=== PATIENT | female | born 1975 | race Caucasian/White ===

== ENCOUNTER → 2017-08-29 | Outpatient (CLI) | payer OTHER ==
--- NOTE | 2017-08-29 13:11 | MM ---
Reason for exam: additional evaluation requested from prior study. Last mammogram was performed 1 year and 6 months ago. History: Family history of breast cancer in mother at age 32 and breast cancer in grandmother. Took hormonal contraceptives for 6 years. Physical Findings: Nurse did not find any significant physical abnormalities on exam. MG 3D Diag Mammo W/Cad EH Bilateral CC and MLO view(s) were taken. Prior study comparison: February 24, 2016, left breast MG follow up LT no charge. February 10, 2016, bilateral MG diagnostic mammo w CAD EH. Scattered benign round calcifications. 6mm nodular asymmetry far posterior superior left breast likely a axillary tail lymph node but was not seen previously. These results were verbally communicated with the patient and result sheet given to the patient on 08/29/17. ASSESSMENT: Incomplete: need additional imaging evaluation, BI-RAD 0 RECOMMENDATION: Ultrasound of the left breast. (upper outer quadrant/axilla)
--- NOTE | 2017-08-29 13:12 | USB ---
Reason for exam: additional evaluation requested from abnormal screening. History: Family history of breast cancer in mother at age 32 and breast cancer in grandmother. Took hormonal contraceptives for 6 years. US Breast Limited LT Left breast ultrasound demonstrates no cystic or solid lesion seen. These results were verbally communicated with the patient and result sheet given to the patient on 08/29/17. ASSESSMENT: Probably benign, BI-RAD 3 RECOMMENDATION: Follow-up diagnostic mammogram of the left breast in 6 months.
== END | disposition home or self-care (01) ==
LOC: RADMAMWWP 10:48
PROVIDERS: ATTEND Family Medicine
DX: R92.8 Other abnormal and inconclusive findings on diagnostic imaging of breast (principal)
CPT/HCPCS: 76642; G0204; G0279

== ENCOUNTER → 2018-03-24 | Outpatient (CLI) | payer BC, OTHER ==
--- NOTE | 2018-03-27 08:39 | MM ---
Reason for exam: follow-up at short interval from prior study. Last mammogram was performed 7 months ago. History: Family history of breast cancer in mother at age 32 and breast cancer in grandmother. Took hormonal contraceptives for 6 years. Physical Findings: Nurse did not find any significant physical abnormalities on exam. MG 3D Diag Mammo W/Cad LT CC and MLO view(s) were taken of the left breast. Prior study comparison: August 29, 2017, bilateral MG 3d diag mammo w/cad EH. February 24, 2016, left breast MG follow up LT no charge. There are scattered fibroglandular densities. Benign calcifications in the left breast. The previously seen suspicious asymmetry overlying the pectoralis related to a folding vessel and is no longer present. These results were verbally communicated with the patient and result sheet given to the patient on 03/24/18. ASSESSMENT: Benign, BI-RAD 2 RECOMMENDATION: Routine screening mammogram of both breasts in 6 months. Back on schedule for August 2018.
== END | disposition home or self-care (01) ==
LOC: RADMAMWWP 14:28
PROVIDERS: ATTEND Family Medicine
DX: R92.8 Other abnormal and inconclusive findings on diagnostic imaging of breast (principal)
CPT/HCPCS: 77061; 77065

== ENCOUNTER → 2018-12-04 | Outpatient (CLI) | payer BC ==
[2018-12-04 18:39] LABS: Anion Gap 7.5 mmol/L (4.00-12.00); Carbon Dioxide 24.5 mmol/L (21.6-31.8); LDL Cholesterol,Calculated 33.8 mg/dL (0.0-131.0); Potassium 4.4 mmol/L (3.5-5.5); VLDL Calculation 53.2 mg/dL (5.00-40.00)
[2018-12-04 20:47] LABS: Hemoglobin A1C 7.3 % (4.0-6.0)
== END ==
LOC: LABWHC1 07:57
PROVIDERS: ATTEND Family Medicine
DX: E11.9 Type 2 diabetes mellitus without complications (principal); Z79.899 Other long term (current) drug therapy
CPT/HCPCS: 36415; 80051; 80061; 82043; 82565; 82570; 83036; 84520

== ENCOUNTER → 2019-06-12 | Outpatient (CLI) | payer BC ==
[2019-06-12 16:51] LABS: African American GFR (CKD) 124.7 (60.0-200.0); Carbon Dioxide 23.8 mmol/L (21.6-31.8); Chloride 106 mmol/L (96-109); Chol/HDL Ratio 4.43; Cholesterol 133 mg/dL (0-200); Potassium 3.9 mmol/L (3.5-5.5); Sodium 139 mmol/L (135-145)
[2019-06-12 19:01] LABS: Hemoglobin A1C 6.9 % (4.0-6.0)
== END | disposition home or self-care (01) ==
LOC: LABWHC1 08:21
PROVIDERS: ATTEND Family Medicine
DX: E78.00 Pure hypercholesterolemia, unspecified (principal); E11.9 Type 2 diabetes mellitus without complications
CPT/HCPCS: 36415; 80051; 80061; 82043; 82565; 82570; 83036; 83721; 84520

== ENCOUNTER → 2019-07-02 | Outpatient (CLI) | payer BC ==
--- NOTE | 2019-07-02 14:42 | MM ---
Reason for exam: screening (asymptomatic). Last mammogram was performed 1 year and 3 months ago. History: Family history of breast cancer in mother at age 32 and breast cancer in grandmother. Took hormonal contraceptives for 6 years. Physical Findings: A clinical breast exam by your physician is recommended on an annual basis and results should be correlated with mammographic findings. MG Screening Mammo w CAD Bilateral CC and MLO view(s) were taken. Prior study comparison: March 24, 2018, left breast MG 3d diag mammo w/cad LT. August 29, 2017, bilateral MG 3d diag mammo w/cad EH. February 10, 2016, bilateral MG diagnostic mammo w CAD EH. Finding: There is a 6 mm equal density (isodense), circumscribed lobulated mass located 8 cm from the nipple in the upper outer quadrant, middle position of the left breast. New finding since March 24, 2018, August 29, 2017, and February 10, 2016. ASSESSMENT: Incomplete: need additional imaging evaluation, BI-RAD 0 RECOMMENDATION: Special view mammogram of the left breast. If lesion persists on supplemental views, image directed ultrasound is recommended. [facility] will attempt to contact patient to return for supplemental views and ultrasound if indicated.
== END | disposition home or self-care (01) ==
LOC: LABWHC1 07:42
PROVIDERS: ATTEND Family Medicine
DX: Z12.31 Encounter for screening mammogram for malignant neoplasm of breast (principal)
CPT/HCPCS: 77067

== ENCOUNTER → 2019-07-12 | Outpatient (CLI) | payer BC ==
--- NOTE | 2019-07-12 11:37 | MM ---
Reason for exam: additional evaluation requested from abnormal screening. Last mammogram was performed less than 1 month ago. History: Family history of breast cancer in mother at age 32 and breast cancer in grandmother. Took hormonal contraceptives for 6 years. Physical Findings: Nurse did not find any significant physical abnormalities on exam. MG Work Up Mamm w CAD LT Spot compression CC, spot compression MLO, and ML view(s) were taken of the left breast. Prior study comparison: July 02, 2019, bilateral MG screening mammo w CAD. March 24, 2018, left breast MG 3d diag mammo w/cad LT. The breast tissue is heterogeneously dense. This may lower the sensitivity of mammography. Benign appearing calcifications in the left breast. 4mm asymmetries persist on spot MLO at middle depth 7cm from nipple. One is central and the other superior. Probable correlate laterally. These results were verbally communicated with the patient and result sheet given to the patient on 07/12/19. ASSESSMENT: Incomplete: need additional imaging evaluation, BI-RAD 0 RECOMMENDATION: Ultrasound of the left breast. (lateral half)
--- NOTE | 2019-07-12 11:40 | USB ---
Reason for exam: additional evaluation requested from abnormal screening. History: Family history of breast cancer in mother at age 32 and breast cancer in grandmother. Took hormonal contraceptives for 6 years. US Breast Workup Limited LT Left limited breast ultrasound including focal area of concern, retroareolar and axilla demonstrates a 0.7 x 0.7 x 0.9cm irregular, lobular, shadowing, irregular, hypoechoic lesion at 3 o'clock for which a biopsy is recommended, a 0.3 x 0.4 x 0.2cm oval, cystic lesion at 3 o'clock probable small cysts and probable mammographic correlate, a 0.3 x 0.5 x 0.3cm oval, irregular, hypoechoic lesion at 3 o'clock probable small cysts and probable mammographic correlate and multiple axilla nodes. These results were verbally communicated with the patient and result sheet given to the patient on 07/12/19. ASSESSMENT: Suspicious, BI-RAD 4 RECOMMENDATION: Ultrasound core biopsy of the left breast. (3 o'clock zone A) Called Dr. Araiza with mammographic findings and has scheduled an appointment for the patient for 07/20/19 at 1:[address] Gallo. Biopsy scheduled for 07/25/19 at 2:00. PRELIMINARY REPORT CALLED AND FAXED TO DR. GALLO ON 07/12/19.
== END | disposition home or self-care (01) ==
LOC: RADMAMWWP 08:46
PROVIDERS: ATTEND Family Medicine
DX: R92.8 Other abnormal and inconclusive findings on diagnostic imaging of breast (principal)
CPT/HCPCS: 77065

== ENCOUNTER → 2019-07-20 | Outpatient (CLI) | payer BC ==
[2019-07-20 13:43] VITALS: BP 126/85; PULSE 83; RESP 16; TEMP 98.4; BMI 33.6
--- NOTE | 2019-07-20 13:59 | P.GSHP ---
History of Present Illness H&P Date: 07/20/19 Chief Complaint: abnormal mammogram Comfort is a 43-year-old white female who had a routine mammogram performed on 920 [id number]. There was noted to be a 6 mm equal density circumscribed lobulated mass 8 cm from the nipple in the upper outer quadrant mid position of the left breast. No lesions of concern were described in the right breast. An ultrasound of the left breast revealed a 0.7 x 0.9 cm irregular shadowing lesion for which biopsy was recommended. Several smaller cystic lesions were identified as well. The patient does not feel anything of concern in her breast. The patient has no history of any infection in her breast. No history of any trauma in her breasts. No prior breast biopsies. The patient is not complaining of any pain in her breasts. The ultrasounds were reviewed with Dr. Sanches. Depending on the results after ultrasound-guided core biopsy if this is negative she will consider discordant and recommended needle local excisional biopsy. The patient had genetic testing done and is negative for the BRCA1 gene. This was secondary to her mother dying of breast cancer at the age of 40. Family History: mother: of breast cancer at 40, DX. at 32 paternal grandmother: breast cancer Hormonal history: Menarche:14 , breast fed: yes, age at first: 26 Hysterectomy at 40, left ovaries, done for endometriosis BCP: 2 years did not take anything with estrogen hormones:none Past Surgical History: 1. hysterectomy 2. cervical biopsy 3. novasure 4. teeth wisdom Medical History: 1. diabetic 2. HTN 3. depression Social History: smoke: none alcohol: noen drugs: none - Constitutional Constitutional: Denies chills, Denies fever - EENT Eyes: denies blurred vision, denies pain Ears: bilateral: tinnitus, deny: decreased hearing Ears, nose, mouth and throat: Denies headache, Denies sore throat - Breasts Breasts: bilateral: as per HPI - Cardiovascular Cardiovascular: Reports high blood pressure - Respiratory Respiratory: Denies cough, Denies 7 - Gastrointestinal Gastrointestinal: Denies abdominal pain, Denies diarrhea, Denies nausea, Denies vomiting - Genitourinary (Female) Genitourinary: Denies dysuria, Denies hematuria - Menstruation Menstruation: Reports post hysterectomy - Musculoskeletal Musculoskeletal: Reports myalgias - Integumentary Integumentary: Denies pruritus, Denies rash - Neurological Neurological: Denies numbness, Denies weakness - Psychiatric Psychiatric: Reports anxiety, Reports depression - Endocrine Comment: diabetes - Hematologic/Lymphatic Comment: none - Allergic/Immunologic Allergic/Immunologic: Reports as per HPI Past Medical History Past Medical History: Diabetes Mellitus, Hypertension Additional Past Medical History / Comment(s): depression History of Any Multi-Drug Resistant Organisms: None Reported Past Surgical History: Section, Hysterectomy Additional Past Surgical History / Comment(s): Nova sure, cervical biopsy benign Past Anesthesia/Blood Transfusion Reactions: No Reported Reaction Past Psychological History: Anxiety, Depression Smoking Status: Never smoker Past Alcohol Use History: None Reported Past Drug Use History: None Reported Medications and Allergies Home Medications Medication Instructions Recorded Confirmed Type Ibuprofen [Motrin] 800 mg PO Q8HR PRN #20 tab 09/08/16 07/20/19 Rx Insulin Glargine [Lantus] 80 unit SQ HS 09/08/16 07/20/19 History Lisinopril [Prinivil] 20 mg PO DAILY 09/08/16 07/20/19 History Simvastatin [Zocor] 20 mg PO HS 09/08/16 07/20/19 History metFORMIN HCL 1,000 mg PO BID 09/08/16 07/20/19 History Allergies Allergy/AdvReac Type Severity Reaction Status Date / Time Penicillins Allergy Unknown Verified 07/20/19 13:31 Childhood Surgical - Exam Vital Signs Temp Pulse Resp BP Pulse Ox 98.4 F 83 16 126/85 99 07/20/19 13:37 07/20/19 13:37 07/20/19 13:37 07/20/19 13:37 07/20/19 13:37 BMI 33.7 - General well developed, well nourished, no distress - Eyes normal ocular movement - ENT no hearing loss, no congestion - Neck no masses, trachea midline - Respiratory normal respiratory effort, clear to auscultation - Cardiovascular Rhythm: regular Heart Sounds: normal: S1, S2 - Abdomen Abdomen: soft, non tender, no guarding, no rigid, no rebound - Integumentary normal turgor - Neurologic no disoriented, no combative - Musculoskeletal normal gait - Psychiatric oriented to time, oriented to person, oriented to place, speech is normal, memory intact breast exam: Right breast: Multi-positional exam fibrocystic breast changes no discrete dominant masses or nodules of concern Right axilla: No adenopathy of concern Left breast: Multi-positional exam fibrocystic changes no discrete dominant masses or nodules of concern, special attention was paid to the 3:00 area and no definite mass could be identified Left axilla: No adenopathy of concern Results Mammogram and ultrasound results reviewed Assessment and Plan Assessment: Impression: 1. Fibrocystic breast changes 2. Abnormal mammogram 2. Abnormal ultrasound left breast 4. Family history of breast cancer 5. Hypertension 6. Diabetes 7. Anxiety/depression Plan: 1. Ultrasound-guided core biopsy of left breast lesion at the 3:00 zone a position 2. If pathology is not positive. Consider this discordant and needle local excisional biopsy after review with Dr. Sanches 3. Medical management of medical conditions 4. Patient has had genetic testing for BRCA1 gene we'll consider additional genetic testing secondary to family history CC: Miguel A Araiza
== END | disposition home or self-care (01) ==
LOC: WWCWWP 13:16
PROVIDERS: ATTEND Surgery
DX: Z53.9 Procedure and treatment not carried out, unspecified reason (principal)

== ENCOUNTER → 2019-07-25 | Day surgery (SDC) | payer BC ==
[2019-07-25 13:26] VITALS: PULSE 76; RESP 16; TEMP 98.1; BMI 33.5
[2019-07-25 15:20] VITALS: BP 122/78
--- NOTE | 2019-07-25 15:58 | USB ---
EXAMINATION TYPE: US biopsy breast VAD LT DATE OF EXAM: 07/25/2019 CLINICAL HISTORY: R92..8 Abnormal Mammogram. TECHNIQUE: Ultrasound guided core biopsy of left breast. COMPARISON: 07/12/2019 FINDINGS: The procedure of ultrasound guided core biopsy was explained to the patient. Benefits, alternatives, and risks were discussed. An informed consent was then obtained. A timeout was performed The patient was placed in supine positioning for imaging and for the procedure. The overlying skin was prepped and draped in usual sterile fashion. Lidocaine buffered was used as anesthetic into the skin and subcutaneous tissue up to area of concern in the left breast. A jack was made with surgical scalpel. Under ultrasound guidance, a 12-gauge vacuum assisted biopsy gun device was used to obtain 4 core samples. Following this, a biopsy clip was left in lesion. The patient tolerated the procedure well without any immediate complication. The patient was kept in the radiology department for short stay after the procedure and then discharged home in stable condition. Postprocedure mammogram was performed. Clip is identified in the expected region of the biopsy. IMPRESSION: 1. Successful ultrasound-guided vacuum-assisted core biopsy left breast. Recommendations: 1. Recommendations are pending pathology results. Pathology Results: Benign LEFT BREAST, ULTRASOUND GUIDED CORE BIOPSY: Fibrocystic changes including fibrosis, small cysts and mild usual type ductal hyperplasia. Recommendation Follow up mammogram of the left breast in 6 months. DONNA
== END ==
LOC: RADUSWWP 12:43
PROVIDERS: ATTEND Surgery
DX: N60.12 Diffuse cystic mastopathy of left breast (principal); Z88.0 Allergy status to penicillin
CPT/HCPCS: 88305; 77065; 19083; A4648; J2001

== ENCOUNTER → 2019-08-10 | Outpatient (CLI) | payer BC ==
[2019-08-10 08:48] VITALS: BP 119/76; PULSE 90; RESP 18; TEMP 98.2; BMI 33.5
--- NOTE | 2019-08-10 09:15 | P.PN ---
Subjective Progress Note Date: 08/10/19 Principal diagnosis: Discordant ultrasound core biopsy Comfort is a 43-year-old white female who had a routine mammogram performed on 920 [id number]. There was noted to be a 6 mm equal density circumscribed lobulated mass 8 cm from the nipple in the upper outer quadrant mid position of the left breast. No lesions of concern were described in the right breast. An ultrasound of the left breast revealed a 0.7 x 0.9 cm irregular shadowing lesion for which biopsy was recommended. Several smaller cystic lesions were identified as well. The patient does not feel anything of concern in her breast. The patient has no history of any infection in her breast. No history of any trauma in her breasts. No prior breast biopsies. The patient is not complaining of any pain in her breasts. The ultrasounds were reviewed with Dr. Sanches. Depending on the results after ultrasound-guided core biopsy if this is negative she will consider discordant and recommended needle local excisional biopsy. The patient underwent an ultrasound core biopsy on [id number]. Pathology was discordant revealing only fibrocystic changes including fibrosis, small cyst, and usual tight ductal hyperplasia. Prior to the core biopsy had been reviewed with the radiologist and discussed with the patient that if this was benign the needle local excisional biopsy would be recommended. It would be considered discordant if this was benign or at minimum not benign specific. Of significance is the fact that the patient's mother of breast cancer in her 40s. Her mother had been told multiple times that she had fibrocystic breast and the tumor was not identified and tolerated it was quite advanced. The patient has had genetic testing done many years ago and we have discussed that there is more extensive testing which is available at this time. She has been given all information regarding this and will call the genetic counselor at her convenience. The patient states that she had marked fatigue following the procedure. She has some mild bruising immediately following the procedure. She does not have any complaints of bruising or swelling at the site of the biopsy at this time. She does not have any fever or chills and no evidence of any infection. The patient had genetic testing done and is negative for the BRCA1 gene. This was secondary to her mother dying of breast cancer at the age of 40. Family History: mother: of breast cancer at 40, DX. at 32 paternal grandmother: breast cancer Hormonal history: Menarche:14 , breast fed: yes, age at first: 26 Hysterectomy at 40, left ovaries, done for endometriosis BCP: 2 years did not take anything with estrogen hormones:none Past Surgical History: 1. hysterectomy 2. cervical biopsy 3. novasure 4. teeth wisdom Medical History: 1. diabetic 2. HTN 3. depression Social History: smoke: none alcohol: noen drugs: none - Constitutional Constitutional: Denies chills, Denies fever - EENT Eyes: denies blurred vision, denies pain Ears: bilateral: tinnitus, deny: decreased hearing Ears, nose, mouth and throat: Denies headache, Denies sore throat - Breasts Breasts: bilateral: as per HPI - Cardiovascular Cardiovascular: Reports high blood pressure - Respiratory Respiratory: Denies cough, Denies 7 - Gastrointestinal Gastrointestinal: Denies abdominal pain, Denies diarrhea, Denies nausea, Denies vomiting - Genitourinary (Female) Genitourinary: Denies dysuria, Denies hematuria - Menstruation Menstruation: Reports post hysterectomy - Musculoskeletal Musculoskeletal: Reports myalgias - Integumentary Integumentary: Denies pruritus, Denies rash - Neurological Neurological: Denies numbness, Denies weakness - Psychiatric Psychiatric: Reports anxiety, Reports depression - Endocrine Comment: diabetes - Hematologic/Lymphatic Comment: none - Allergic/Immunologic Allergic/Immunologic: Reports as per HPI Past Medical History Past Medical History: Diabetes Mellitus, Hypertension Additional Past Medical History / Comment(s): depression History of Any Multi-Drug Resistant Organisms: None Reported Past Surgical History: Section, Hysterectomy Additional Past Surgical History / Comment(s): Nova sure, cervical biopsy benign Past Anesthesia/Blood Transfusion Reactions: No Reported Reaction Past Psychological History: Anxiety, Depression Smoking Status: Never smoker Past Alcohol Use History: None Reported Past Drug Use History: None Reported Medications and Allergies Home Medications Medication Instructions Recorded Confirmed Type Ibuprofen [Motrin] 800 mg PO Q8HR PRN #20 tab 09/08/16 07/20/19 Rx Insulin Glargine [Lantus] 80 unit SQ HS 09/08/16 07/20/19 History Lisinopril [Prinivil] 20 mg PO DAILY 09/08/16 07/20/19 History Simvastatin [Zocor] 20 mg PO HS 09/08/16 07/20/19 History metFORMIN HCL 1,000 mg PO BID 09/08/16 07/20/19 History Allergies Allergy/AdvReac Type Severity Reaction Status Date / Time Penicillins Allergy Unknown Verified 07/20/19 13:31 Childhood Objective - Vital Signs Vital signs: Vital Signs Temp 98.2 F 08/10/19 08:46 Pulse 90 08/10/19 08:46 Resp 18 08/10/19 08:46 BP 119/76 08/10/19 08:46 Pulse Ox 97 08/10/19 08:46 Intake & Output 08/09/19 08/10/19 08/10/19 18:59 06:59 18:59 Weight 102.965 kg - Exam BMI 33.5 - Constitutional General appearance: Present: obese - EENT Eyes: Present: EOMI ENT: Present: hearing grossly normal - Neck Neck: Present: normal ROM - Respiratory Respiratory: bilateral: CTA - Cardiovascular Rhythm: regular Heart sounds: normal: S1, S2 - Integumentary Integumentary Comment(s): left breast: No ecchymosis or evidence of infection at biopsy site No evidence of hematoma at biopsy site left breast Integumentary: Present: normal turgor - Musculoskeletal Musculoskeletal: Present: gait normal - Psychiatric Psychiatric: Present: A&O x's 3, appropriate affect, intact judgment & insight Assessment and Plan Assessment: Impression: 1. Discordant ultrasound core biopsy left breast 2. Abnormal left breast ultrasound 3. Family history of breast cancer/mother 4. Hypertension 5. Diabetes 6. Anxiety/depression Plan: 1. Ultrasound-guided core biopsy of left breast discordant, this will be scheduled for needle local excisional biopsy 2. Medical management of medical conditions prior to surgery 3. Patient BRCA1 negative however this was done many years ago and patient will have additional genetic testing done Cc: Dr. Miguel A Araiza CC: DR. Francine Mendez
== END ==
LOC: WWCWWP 08:13
PROVIDERS: ATTEND Surgery
DX: Z53.9 Procedure and treatment not carried out, unspecified reason (principal)

== ENCOUNTER → 2019-10-18 | Outpatient (CLI) | payer BC ==
[2019-10-18 15:35] VITALS: BP 133/87; PULSE 96; RESP 18; TEMP 98.4
--- NOTE | 2019-10-18 15:57 | P.PN ---
Subjective Progress Note Date: 10/18/19 Principal diagnosis: Discordant ultrasound core biopsy Comfort is a 43-year-old white female [place] [id number]. There was noted to be a 6 mm equal density circumscribed lobulated mass 8 cm from the nipple in the upper outer quadrant mid position of the left breast. No lesions of concern were described in the right breast. An ultrasound of the left breast revealed a 0.7 x 0.9 cm irregular shadowing lesion for which biopsy was recommended. Several smaller cystic lesions were identified as well. The patient does not feel anything of concern in her breast. The patient has no history of any infection in her breast. No history of any trauma in her breasts. No prior breast biopsies. The patient is not complaining of any pain in her breasts. The ultrasounds were reviewed with Dr. Sanches. Depending on the results after ultrasound-guided core biopsy if this is negative she will consider discordant and recommended needle local excisional biopsy. The patient underwent an ultrasound core biopsy on [id number]. Pathology was discordant revealing only fibrocystic changes including fibrosis, small cyst, and usual tight ductal hyperplasia. Prior to the core biopsy had been reviewed with the radiologist and discussed with the patient that if this was benign the needle local excisional biopsy would be recommended. It would be considered discordant if this was benign or at minimum not benign specific. Of significance is the fact that the patient's mother of breast cancer in her 40s. Her mother had been told multiple times that she had fibrocystic breast and the tumor was not identified and tolerated it was quite advanced. T he patient has had genetic testing done many years ago and we have discussed that there is more extensive testing which is available at this time. She has been given all information regarding this and will call the genetic counselor at her convenience. The patient states that she had marked fatigue following the procedure. This lasted for 5 days. She had some mild bruising immediately following the procedure. She does not have any complaints of bruising or swelling at the site of the biopsy at this time. She does not have any fever or chills and no evidence of any infection. The patient had genetic testing done and is negative for the BRCA1 gene. This was secondary to her mother dying of breast cancer at the age of 40. Case was reviewed with Dr. Jaimes.. There are 3 ultrasound abnormalities one of which is most suspicious. However on the day of the procedure all would be again evaluated and not only the one which was discordant but the other 2 with deemed necessary will be localized and removed as well. Family History: mother: of breast cancer at 40, DX. at 32 paternal grandmother: breast cancer Hormonal history: Menarche:14 , breast fed: yes, age at first: 26 Hysterectomy at 40, left ovaries, done for endometriosis BCP: 2 years did not take anything with estrogen hormones:none Past Surgical History: 1. hysterectomy 2. cervical biopsy 3. novasure 4. teeth wisdom Medical History: 1. diabetic 2. HTN 3. depression 4. Patient experiences fatigue after surgical procedures Social History: smoke: none alcohol: none drugs: none - Constitutional Constitutional: Denies chills, Denies fever - EENT Eyes: denies blurred vision, denies pain Ears: bilateral: tinnitus, deny: decreased hearing Ears, nose, mouth and throat: Denies headache, Denies sore throat - Breasts Breasts: bilateral: as per HPI - Cardiovascular Cardiovascular: Reports high blood pressure - Respiratory Respiratory: Denies cough, - Gastrointestinal Gastrointestinal: Denies abdominal pain, Denies diarrhea, Denies nausea, Denies vomiting - Genitourinary (Female) Genitourinary: Denies dysuria, Denies hematuria - Menstruation Menstruation: Reports post hysterectomy - Musculoskeletal Musculoskeletal: Reports myalgias - Integumentary Integumentary: Denies pruritus, Denies rash - Neurological Neurological: Denies numbness, Denies weakness - Psychiatric Psychiatric: Reports anxiety, Reports depression - Endocrine Comment: diabetes - Hematologic/Lymphatic Comment: none - Allergic/Immunologic Allergic/Immunologic: Reports as per HPI Past Medical History Past Medical History: Diabetes Mellitus, Hypertension Additional Past Medical History / Comment(s): depression History of Any Multi-Drug Resistant Organisms: None Reported Past Surgical History: Section, Hysterectomy Additional Past Surgical History / Comment(s): Nova sure, cervical biopsy benign Past Anesthesia/Blood Transfusion Reactions: No Reported Reaction Past Psychological History: Anxiety, Depression Smoking Status: Never smoker Past Alcohol Use History: None Reported Past Drug Use History: None Reported Objective - Vital Signs Vital signs: Vital Signs Temp 98.4 F 10/18/19 15:30 Pulse 96 10/18/19 15:30 Resp 18 10/18/19 15:30 BP 133/87 10/18/19 15:30 Pulse Ox 98 01/09/20 15:30 Intake & Output 10/17/19 10/18/19 10/18/19 18:59 06:59 18:59 Weight 106.141 kg - Exam BMI 34.6 - Constitutional General appearance: Present: obese - EENT Eyes: Present: EOMI ENT: Present: hearing grossly normal - Neck Details: no adenopathy Neck: Present: normal ROM - Respiratory Respiratory: bilateral: CTA - Cardiovascular Rhythm: regular Heart sounds: normal: S1, S2 - Gastrointestinal General gastrointestinal: Present: normal bowel sounds, soft - Integumentary Integumentary: Present: normal turgor - Musculoskeletal Musculoskeletal: Present: gait normal - Psychiatric Psychiatric: Present: A&O x's 3, appropriate affect, intact judgment & insight - Additional findings Additional findings: breast exam: bra 44DD ptosis grade2/3 right breast: Multi-positional exam no dominant masses or nodules of concern, fibrocystic breast changes, positive axillary breast tissue asymmetric from the left side Right axilla: No adenopathy of concern Left breast: Multi-positional exam no dominant masses or nodules of concern, fibrocystic breast changes Left axilla: No adenopathy of concern Assessment and Plan Assessment: Impression: 1. diabetic 2. HTN 3. depression 4. Patient experiences fatigue after surgical procedures 5. Discordant ultrasound core biopsy left breast, patient with the ultrasound changes in the left breast the other 2 are most likely benign however on the day of the biopsy these will be reevaluated and if any concern ultrasound localization of all 3 areas will be performed 6. Redundant right axillary breast tissue Plan: 1. ultrasound guided localization of discordant lesion in the left breast with excisional biopsy 2. Possible needle localization of a second or third area of ultrasound abnormality in the left breast, this will be decided on the day of the surgery Benefits of the procedure discussed with the patient. The patient understands these include bleeding, infection, possible reaction to the anesthetic. They also could include inability to resect the lesion initially targeted may result in need for additional biopsy in the future. She understands and wishes to proceed. Cc: Dr. Miguel A Araiza encounter 20 minutes, > 50% of time in planning and counselling Time with Patient: Less than 30
== END | disposition home or self-care (01) ==
LOC: WWCWWP 15:10
PROVIDERS: ATTEND Surgery
DX: Z53.9 Procedure and treatment not carried out, unspecified reason (principal)

== ENCOUNTER 2019-10-23 08:59 | Day surgery (SDC) | payer BC ==
[2019-10-22 08:43] VITALS: BMI 34.0
[~2019-10-23 08:59] MED LIST: DEXAMETHASONE SOD PHOSPHATE 10 MG/ML 1 ML VIAL IV ONE; HEPARIN SODIUM,PORCINE 5,000 UNIT/ML 1 ML VIAL SQ ONE; HYDROmorphone 0.5 MG/0.5 ML SYRINGE IVP PRN; LACTATED RINGERS 1,000 ML IV SCH; LIDOCAINE 1% 20 ML VIAL (10MG/ML) FOR IV START INTRADERMA PRN; MIDAZOLAM 2 MG/2 ML VIAL IV PRN; ONDANSETRON 4 MG/2 ML VIAL IVP ONE; Pre Op ABX Message 1 EACH MISC MISCELLANE ONE; SCOPOLAMINE 1.5MG/72HR PATCH TRANSDERM ONE
[2019-10-23] MEDS ORDERED: ALPRAZolam 0.5 MG TAB PO ONE (09:21)
[2019-10-23 09:30] LABS: Glucose,Whole Blood 135 mg/dL (75-99)
[2019-10-23] MEDS ORDERED: LIDOCAINE 1% INJ 10MG/ML (20 ML MDV) SQ ONE ×3 (10:16→13:23)
--- NOTE | 2019-10-23 11:14 | USB ---
Reason for exam: clinical finding. History: Family history of breast cancer in mother at age 32 and breast cancer in grandmother. Benign US biopsy breast VAD LT of the left breast, July 25, 2019. Took hormonal contraceptives for 6 years. US Breast Limited LT Left limited breast ultrasound including focal area of concern, retroareolar and axilla demonstrates a 0.4 x 0.2 x 0.3cm oval, cystic, complex lesion at 3 o'clock and a 0.4 x 0.4cm oval, cystic, complex lesion at 3 o'clock. No interval growth, likely benign. Re-evaluate on 6 month follow up post excisional exam. ASSESSMENT: Probably benign, BI-RAD 3 RECOMMENDATION: Ultrasound of the left breast in 6 months.
[2019-10-23] MEDS ORDERED: LIDOCAINE 1% INJ 10MG/ML (20 ML MDV) ONE (12:20)
[2019-10-23] MEDS ORDERED: MIDAZOLAM 2 MG/2 ML VIAL ONE (12:20)
[2019-10-23] MEDS ORDERED: fentaNYL (PF) 50 MCG/ML 2 ML AMP ONE (12:20)
[2019-10-23] MEDS ORDERED: PROPOFOL 10 MG/ML 20 ML VIAL IV ONE (12:20)
--- NOTE | 2019-10-23 13:19 | P.OP ---
Date of Procedure: 10/23/19 Preoperative Diagnosis: Discordant biopsy results left breast core biopsy Postoperative Diagnosis: Same Procedure(s) Performed: needle Local excisional biopsy lesion left breast Anesthesia: GETA Surgeon: Luanne Gallo Estimated Blood Loss (ml): 5 IV fluids (ml): 300 Pathology: other (breast tissue) Condition: stable Disposition: same day Indications for Procedure: discordant core biopsy of the left breast Operative Findings: fatty breast tissue Description of Procedure: The patient was taken to the operating room and following induction of anesthesia the left breast was prepped and draped in a sterile fashion. Prior to coming to the operating room area of concern had been localized in the radiology department. Following induction of anesthesia the left breast was prepped and draped in a sterile fashion. A periareolar incision was made and carried down into the breast tissue. Wide excision of the tissue around the needle was performed. The specimen was removed and painted for orientation. Radiograph of the specimen was obtained. After assured that hemostasis was attained the deep tissues were closed using 3-0 Vicryl suture. The subcutaneous tissue was closed using 3-0 Vicryl suture. The subcuticular 4-0 Monocryl closure was performed. The patient tolerated the procedure in stable condition. All instrument and sponge counts were correct at the end of the case. Rad iograph of the specimen revealed the area of concern had been removed.
--- NOTE | 2019-10-23 13:21 | P.DS ---
Providers Attending physician: Luanne Gallo Primary care physician: Miguel A Araiza Plan - Discharge Summary Discharge Rx Participant: Yes New Discharge Prescriptions: No Action Simvastatin [Zocor] 20 mg PO HS metFORMIN HCL 1,000 mg PO BID Lisinopril [Prinivil] 20 mg PO QAM Insulin Glargine [Lantus] 80 unit SQ HS Ibuprofen [Motrin] 800 mg PO Q8HR PRN #20 tab PRN Reason: Pain Semaglutide [Ozempic] 1 mg SQ MO Discharge Medication List Ibuprofen [Motrin] 800 mg PO Q8HR PRN #20 tab 09/08/16 [Rx] Insulin Glargine [Lantus] 80 unit SQ HS 09/08/16 [History] Lisinopril [Prinivil] 20 mg PO QAM 09/08/16 [History] Simvastatin [Zocor] 20 mg PO HS 09/08/16 [History] metFORMIN HCL 1,000 mg PO BID 09/08/16 [History] Semaglutide [Ozempic] 1 mg SQ MO 10/18/19 [History] Follow up Appointment(s)/Referral(s): Luanne Gallo MD [STAFF PHYSICIAN] - 1 Week Activity/Diet/Wound Care/Special Instructions: do not drive today or if taking narcotic pain medications may shower after 48 hours wear bra at all times Discharge Disposition: HOME SELF-CARE
[2019-10-23 13:45] VITALS: TEMP 97.5
[2019-10-23 14:01] VITALS: RESP 16
[2019-10-23 14:04] LABS: Glucose,Whole Blood 155 mg/dL (75-99)
--- NOTE | 2019-10-23 14:06 | MM ---
EXAMINATION TYPE: MG pre op needle loc LT, MG surgical specimen LT DATE OF EXAM: 10/23/2019 COMPARISON: Left breast biopsy dated 07/25/2019 CLINICAL HISTORY: Left mammographic guided needle localization for discordant ultrasound biopsy TECHNIQUE: Needle localization with wire placement and surgical excision of area of concern in the left breast. FINDINGS: The procedure of needle localization with wire placement and than surgical excision was explained to the patient. Benefits, alternatives, and risks were discussed. An informed consent was then obtained. Preprocedural timeout was performed. The shortest pathway for procedure was chosen. Shortest pathway was lateral medial approach. The overlying skin was prepped and draped in usual sterile fashion. Lidocaine buffered with bicarbonate was used as anesthetic into the skin and subcutaneous tissue up to the level of area of concern. A 5 cm needle was used. It was placed via a lateral to medial approach under mammographic guidance. Subsequent 90 degrees mammogram show the needle to be in satisfactory position relative to the targeted area. At this point, wire was placed and the needle was withdrawn. The wire was fixed to patient's skin. Images were marked for surgeon. The patient tolerated the procedure well without any immediate complication. The patient was kept in the radiology department for short stay after the procedure and then taken to surgery for surgical excision. Targeted biopsy marker and wire are identified in specimen mammogram. The patient was kept in hospital for short stay after the procedure and then discharged home in stable condition. IMPRESSION: Successful, uncomplicated needle localization with wire placement and surgical excision of biopsy marker denoting the discordant ultrasound-guided biopsy in the left breast, full pathology results to follow. Pathology Results: Benign LEFT BREAST, NEEDLE LOCALIZATION EXCISION: Benign breast with fibrocystic changes including usual type ductal hyperplasia and previous biopsy site. Recommendation Follow up mammogram of the left breast in 6 months. MTDD
[2019-10-23 15:08] VITALS: BP 115/77; PULSE 91
== END 2019-10-23 15:23 | disposition home or self-care (01) ==
LOC: OR 08:59
PROVIDERS: ATTEND Surgery
DX: N60.12 Diffuse cystic mastopathy of left breast (principal); N62 Hypertrophy of breast; R92.8 Other abnormal and inconclusive findings on diagnostic imaging of breast; Z80.3 Family history of malignant neoplasm of breast; Z90.710 Acquired absence of both cervix and uterus; E11.9 Type 2 diabetes mellitus without complications; I10 Essential (primary) hypertension; F32.9 Major depressive disorder, single episode, unspecified; F41.9 Anxiety disorder, unspecified; E78.5 Hyperlipidemia, unspecified; Z79.1 Long term (current) use of non-steroidal anti-inflammatories (NSAID); Z79.4 Long term (current) use of insulin; Z79.899 Other long term (current) drug therapy; Z88.0 Allergy status to penicillin
CPT/HCPCS: 19125; 88307; 76098; 19281; 76642; J2250; J1644; J1100; J2405; J2001; J3010; J2704

== ENCOUNTER → 2019-11-01 | Outpatient (CLI) | payer BC ==
[2019-11-01 08:51] VITALS: BP 120/75; PULSE 91; RESP 18; TEMP 98.4
--- NOTE | 2019-11-01 09:18 | P.PN ---
Progress Note - Text Progress Note Date: 11/01/19 Comfort is a 44-year-old white female status post [place] [id number] revealed benign fibrocystic changes. The patient has no complaints related to the procedure. Physical exam: Incision clean and dry Evidence of infection Impression: Left breast fibrocystic changes Plan: 1. Left breast mammogram in 6 months with position exam at that time Cc: Dr.John Araiza
== END ==
LOC: WWCWWP 08:34
PROVIDERS: ATTEND Surgery
DX: Z53.9 Procedure and treatment not carried out, unspecified reason (principal)

== ENCOUNTER → 2020-04-30 | Outpatient (CLI) | payer BC, OTHER ==
--- NOTE | 2020-04-30 13:53 | MM ---
Reason for exam: follow-up at short interval from prior study. Last mammogram was performed 9 months ago. History: Family history of breast cancer in mother at age 32 and breast cancer in grandmother. Benign MG pre op needle loc LT of the left breast, October 23, 2019. Benign US biopsy breast VAD LT of the left breast, July 25, 2019. Took hormonal contraceptives for 6 years. Physical Findings: Nurse Summary: 2cm nodule in the left breast at 10 o'clock (nurse TM). MG 3D Diag Mammo W/Cad LT CC and MLO view(s) were taken of the left breast. Prior study comparison: July 25, 2019, left breast MG diagnostic mammo LT wo CAD. July 12, 2019, left breast MG work up mamm w CAD LT. There are scattered fibroglandular densities. Finding #1: Architectural distortion and clips in the left breast consistent with internal excision changes. Finding #2: There are typically benign round calcifications in the left breast. There is a chronic nodularity in the left breast. There is no discrete abnormality. These results were verbally communicated with the patient and result sheet given to the patient on 04/30/20. ASSESSMENT: Incomplete: need additional imaging evaluation, BI-RAD 0 RECOMMENDATION: Ultrasound of the left breast. (palpable by nurse)
--- NOTE | 2020-04-30 13:54 | USB ---
Reason for exam: additional evaluation requested from abnormal screening. History: Family history of breast cancer in mother at age 32 and breast cancer in grandmother. Benign MG pre op needle loc LT of the left breast, October 23, 2019. Benign US biopsy breast VAD LT of the left breast, July 25, 2019. Took hormonal contraceptives for 6 years. US Breast Limited LT Left limited breast ultrasound including focal area of concern, retroareolar and axilla demonstrates a 1.7 x 1.4 x 1.1cm oval, hyperechoic lymph node at the axilla, benign lymph node. No cystic or solid lesion at 9-10 o'clock. These results were verbally communicated with the patient and result sheet given to the patient on 04/30/20. ASSESSMENT: Benign, BI-RAD 2 RECOMMENDATION: Follow-up diagnostic mammogram of both breasts in 3 months. Back on schedule for July 2020.
== END | disposition home or self-care (01) ==
LOC: RADMAMWWP 10:46
PROVIDERS: ATTEND Surgery
DX: N63.20 Unspecified lump in the left breast, unspecified quadrant (principal); R92.8 Other abnormal and inconclusive findings on diagnostic imaging of breast
CPT/HCPCS: 77061; 77065

== ENCOUNTER → 2020-05-09 | Outpatient (CLI) | payer BC, OTHER ==
[2020-05-09 12:29] VITALS: BP 137/84; PULSE 77; RESP 18; TEMP 97.5
--- NOTE | 2020-05-09 12:55 | P.PN ---
Subjective Progress Note Date: 05/09/20 Principal diagnosis: Fibrocystic breast disease Comfort is a 43-year-old white female who had a routine mammogram performed on . There was noted to be a 6 mm equal density circumscribed lobulated mass 8 cm from the nipple in the upper outer quadrant mid position of the left breast. No lesions of concern were described in the right breast. An ultrasound of the left breast revealed a 0.7 x 0.9 cm irregular shadowing lesion for which biopsy was recommended. Several smaller cystic lesions were identified as well. The patient does not feel anything of concern in her breast. She underwent an ultrasound core biopsy on 07-25-10, this was felt to be discordant. She underwent a needle localization and open biopsy on 10-23-19 this was also benign. Most recent radiographic studies were left breast mammogram performed on 04/30/20 after which an ultrasound was performed on the same day. The findings were 1.7 cm hypoechoic lymph node in the axilla fell to be benign no cystic or solid lesions in the breast of concern. The finding was a benign BIRADS 2 and follow- up diagnostic mammogram of the left breast in 3 months recommended. The patient does not feel anything for which she is concerned. There is no nipple discharge no skin changes no history of any recent trauma or infection in her breast. The patient had genetic testing done and is negative for the BRCA1 gene. This was secondary to her mother dying of breast cancer at the age of 40. Family History: mother: of breast cancer at 40, DX. at 32 paternal grandmother: breast cancer Hormonal history: Menarche:14 , breast fed: yes, age at first: 26 Hysterectomy at 40, left ovaries, done for endometriosis BCP: 2 years did not take anything with estrogen hormones:none Past Surgical History: 1. hysterectomy 2. cervical biopsy 3. novasure 4. teeth wisdom Medical History: 1. diabetic 2. HTN 3. depression Social History: smoke: none alcohol: none drugs: none - Constitutional Constitutional: Denies chills, Denies fever - EENT Eyes: denies blurred vision, denies pain Ears: bilateral: tinnitus, deny: decreased hearing Ears, nose, mouth and throat: Denies headache, Denies sore throat - Breasts Breasts: bilateral: as per HPI - Cardiovascular Cardiovascular: Reports high blood pressure - Respiratory Respiratory: Denies cough - Gastrointestinal Gastrointestinal: Denies abdominal pain, Denies diarrhea, Denies nausea, Denies vomiting - Genitourinary (Female) Genitourinary: Denies dysuria, Denies hematuria - Menstruation Menstruation: Reports post hysterectomy - Musculoskeletal Musculoskeletal: Reports myalgias - Integumentary Integumentary: Denies pruritus, Denies rash - Neurological Neurological: Denies numbness, Denies weakness - Psychiatric Psychiatric: Reports anxiety, Reports depression - Endocrine Comment: diabetes - Hematologic/Lymphatic Comment: none Objective - Vital Signs Vital signs: Vital Signs Temp 97.5 F L 05/09/20 12:25 Pulse 77 05/09/20 12:25 Resp 18 05/09/20 12:25 BP 137/84 05/09/20 12:25 Pulse Ox 98 05/09/20 12:25 Intake & Output 05/08/20 05/09/20 05/09/20 18:59 06:59 18:59 Weight 106.594 kg - Exam BMI 34.7 - Constitutional General appearance: Present: average body habitus - EENT Eyes: Present: EOMI ENT: Present: hearing grossly normal - Neck Neck: Present: normal ROM - Respiratory Respiratory: bilateral: CTA - Cardiovascular Rhythm: regular Heart sounds: normal: S1, S2 - Gastrointestinal General gastrointestinal: Present: normal bowel sounds, soft - Integumentary Integumentary: Present: normal turgor - Musculoskeletal Musculoskeletal: Present: gait normal - Psychiatric Psychiatric: Present: A&O x's 3, appropriate affect, intact judgment & insight - Additional findings Additional findings: breast exam: BRA: 44DD inspection: well healed scar left breast Palpation: Right breast: Multi-positional exam no dominant masses or nodules of concern Right axilla: No adenopathy of concern left breast: Multi-positional exam fibrocystic changes no dominant masses or nodules of concern Left axilla: No adenopathy of concern Assessment and Plan Assessment: Impression: 1. Fibrocystic breast changes 2. Family history of breast cancer 3. Recent left breast mammogram stable Plan: 1. Bilateral mammogram in 3 months with physician exam at that time 2. Patient is going to consider genetic testing CC: DR. Miguel A Araiza encounter 20 minutes, > 50% of time in planning and counselling
== END | disposition home or self-care (01) ==
LOC: WWCWWP 12:15
PROVIDERS: ATTEND Surgery
DX: Z53.9 Procedure and treatment not carried out, unspecified reason (principal)

== ENCOUNTER → 2020-07-28 | Outpatient (CLI) | payer BC, OTHER ==
--- NOTE | 2020-07-28 13:40 | MM ---
Reason for exam: additional evaluation requested from prior study. Last mammogram was performed 3 months ago. History: Patient is postmenopausal. Family history of breast cancer in mother at age 32 and breast cancer in grandmother. Benign MG pre op needle loc LT of the left breast, October 23, 2019. Benign US biopsy breast VAD LT of the left breast, July 25, 2019. Took hormonal contraceptives for 6 years. Physical Findings: Nurse did not find any significant physical abnormalities on exam. MG 3D Diag Mammo W/Cad EH Bilateral CC and MLO view(s) were taken. Prior study comparison: April 30, 2020, left breast MG 3d diag mammo w/cad LT. July 25, 2019, left breast MG diagnostic mammo LT wo CAD. There are scattered fibroglandular densities. Post surgical change left breast. Subtle low density nodularity subareolar inferior left MLO only apparent on 3D images. 6 month follow up recommended. These results were verbally communicated with the patient and result sheet given to the patient on 07/28/20. ASSESSMENT: Probably benign, BI-RAD 3 RECOMMENDATION: Follow-up diagnostic mammogram of the left breast in 6 months.
== END | disposition home or self-care (01) ==
LOC: RADMAMWWP 12:29
PROVIDERS: ATTEND Surgery
DX: R92.8 Other abnormal and inconclusive findings on diagnostic imaging of breast (principal)
CPT/HCPCS: 77062; 77066

== ENCOUNTER → 2020-08-01 | Outpatient (CLI) | payer BC, OTHER ==
[2020-08-01 13:04] VITALS: BP 140/86; PULSE 86; RESP 18; TEMP 98.6
--- NOTE | 2020-08-01 13:16 | P.PN ---
Subjective Progress Note Date: 08/01/20 Principal diagnosis: abnormal left breast mammogram Fibrocystic breast disease Comfort is a 44-year-old white female who had a routine mammogram performed on . There was noted to be a 6 mm equal density circumscribed lobulated mass 8 cm from the nipple in the upper outer quadrant mid position of the left breast. No lesions of concern were described in the right breast. An ultrasound of the left breast revealed a 0.7 x 0.9 cm irregular shadowing lesion for which biopsy was recommended. Several smaller cystic lesions were identified as well. The patient does not feel anything of concern in her breast. She underwent an ultrasound core biopsy on 07-25-10, this was felt to be discordant. She underwent a needle localization and open biopsy on 10-23-19 this was also benign. Most recent radiographic studies were left breast mammogram performed on 04/30/20 after which an ultrasound was performed on the same day. The findings were 1.7 cm hypoechoic lymph node in the axilla fell to be benign no cystic or solid lesions in the breast of concern. The finding was a benign BIRADS 2 and follow- up diagnostic mammogram of the left breast in 3 months recommended. The patient does not feel anything for which she is concerned. There is no nipple discharge no skin changes no history of any recent trauma or infection in her breast. On the patient underwent a bilateral mammogram. Bilateral mammogram was felt to be probably benign BIRADS 3 and follow-up left breast mammogram in 6 months was recommended. A subtle low density, nodularity in the subareolar left breast was noted and this is what was being followed. The patient herself does not feel any lumps masses or nodules in either breast for which she is concerned. No complaints of nipple discharge or breast pain. He has not had any recent breast trauma or infection. Patient has redundant right axillary tissue which is asymmetric to the other side and tender at times. It rubs on her close making it difficult for her to have a close fit well. The patient had genetic testing done and is negative for the BRCA1 gene. This was secondary to her mother dying of breast cancer at the age of 40. Family History: mother: of breast cancer at 40, DX. at 32 paternal grandmother: breast cancer Hormonal history: Menarche:14 , breast fed: yes, age at first: 26 Hysterectomy at 40, left ovaries, done for endometriosis BCP: 2 years did not take anything with estrogen hormones:none Past Surgical History: 1. hysterectomy 2. cervical biopsy 3. novasure 4. teeth wisdom Medical History: 1. diabetic 2. HTN 3. depression Social History: smoke: none alcohol: none drugs: none - Constitutional Constitutional: Denies chills, Denies fever - EENT Eyes: denies blurred vision, denies pain Ears: bilateral: tinnitus, deny: decreased hearing Ears, nose, mouth and throat: Denies headache, Denies sore throat - Breasts Breasts: bilateral: as per HPI - Cardiovascular Cardiovascular: Reports high blood pressure - Respiratory Respiratory: Denies cough - Gastrointestinal Gastrointestinal: Denies abdominal pain, Denies diarrhea, Denies nausea, Denies vomiting - Genitourinary (Female) Genitourinary: Denies dysuria, Denies hematuria - Menstruation Menstruation: Reports post hysterectomy - Musculoskeletal Musculoskeletal: Reports myalgias - Integumentary Integumentary: Denies pruritus, Denies rash - Neurological Neurological: Denies numbness, Denies weakness - Psychiatric Psychiatric: Reports anxiety, Reports depression - Endocrine Comment: diabetes - Hematologic/Lymphatic Comment: none Objective - Vital Signs Vital signs: Vital Signs Temp 98.6 F 08/01/20 13:00 Pulse 86 08/01/20 13:00 Resp 18 08/01/20 13:00 BP 140/86 08/01/20 13:00 Pulse Ox 97 08/01/20 13:00 Intake & Output 07/31/20 08/01/20 08/01/20 18:59 06:59 18:59 Weight 106.594 kg - Exam BMI 34.7 - Constitutional General appearance: Present: obese - EENT Eyes: Present: EOMI ENT: Present: hearing grossly normal - Neck Neck: Present: normal ROM - Respiratory Respiratory: bilateral: CTA - Cardiovascular Rhythm: regular Heart sounds: normal: S1, S2 - Gastrointestinal General gastrointestinal: Present: normal bowel sounds, soft - Integumentary Integumentary: Present: normal turgor - Musculoskeletal Musculoskeletal: Present: gait normal - Psychiatric Psychiatric: Present: A&O x's 3, appropriate affect, intact judgment & insight - Additional findings Additional findings: Breast BRA: 44DD inspection: Grade 3 ptosis bilaterally, redundant right axillary tissue Palpation: Right breast: Multi-positional exam fibrocystic changes no dominant masses or nodules of concern, redundant right axillary tissue which is painful at times Right axilla: No adenopathy of concern Left breast: Multi-positional exam fibrocystic changes no dominant masses or nodules of concern Left axilla: No adenopathy of concern Assessment and Plan Assessment: Impression: 1. DM 2. Depression 3. Hypertension 4. Redundant right axillary skin and tissue 5. Fibrocystic breast changes 6. Radiographic abnormality left breast for which 6 month repeat mammogram recommended 7. Positive family history of breast cancer/mother at age 40 Plan: 1. Repeat left breast mammogram in 6 months 2. Surgical resection of redundant right axillary skin and tissue 3. Medical management of medical conditions CC: DR. Miguel A Araiza Risks and benefits of procedure discussed with the patient did she wishes to proceed. encounter 25 minutes, > 50% of time in planning and counselling
== END | disposition home or self-care (01) ==
LOC: WWCWWP 12:18
PROVIDERS: ATTEND Surgery
DX: Z53.9 Procedure and treatment not carried out, unspecified reason (principal)

== ENCOUNTER → 2020-11-28 | Outpatient (CLI) | payer BC, OTHER ==
--- NOTE | 2020-11-28 13:22 | US ---
EXAMINATION TYPE: US pelvic complete DATE OF EXAM: 11/28/2020 COMPARISON: NONE CLINICAL HISTORY: LLQ Pain R10.32. LLQ pain x 1 year, pt states uterus removed TECHNIQUE: Transabdominal (TA). Transabdominal sonographic images of the pelvis were acquired. Date of LMP: 2015 EXAM MEASUREMENTS: Uterus: Surgically absent Endometrial Stripe: Surgically absent Right Ovary: 2.5 x 2.1 x 2.2 cm Left Ovary: 2.6 x 2.1 x 1.7 cm 1. Uterus: Surgically absent 2. Endometrium: Surgically absent 3. Right Ovary: wnl 4. Left Ovary: wnl 5. Bilateral Adnexa: wnl 6. Posterior cul-de-sac: wnl IMPRESSION: 1. Normal pelvic ultrasound
--- NOTE | 2020-11-28 13:23 | US ---
EXAMINATION TYPE: US abdomen complete DATE OF EXAM: 11/28/2020 COMPARISON: NONE CLINICAL HISTORY: LLQ Pain R10.32. Pt states LLQ/Left flank pain EXAM MEASUREMENTS: Liver Length: 19.9 cm Gallbladder Wall: 0.3 cm CBD: 0.3 cm Spleen: 10.4 cm Right Kidney: 13.3 x 5.4 x 5.3 cm Left Kidney: 13.3 x 6.9 x 6.5 cm Pancreas: wnl, tail obscured by overlying bowel gas Liver: Difficult to penetrate, heterogeneous, enlarged compatible with moderate fatty infiltration liver. Gallbladder: Multiple, mobile gallstones, wall thickness upper limits of normal Evidence for sonographic Church's sign: No CBD: wnl Spleen: wnl Right Kidney: wnl Left Kidney: wnl Upper IVC: wnl Abd Aorta: wnl IMPRESSION: 1. Moderate fatty infiltration of the enlarged liver. 2. Cholelithiasis
== END | disposition home or self-care (01) ==
LOC: RADUSWWP 10:50
PROVIDERS: ATTEND Family Medicine
DX: K76.0 Fatty (change of) liver, not elsewhere classified (principal); K80.20 Calculus of gallbladder without cholecystitis without obstruction; R10.32 Left lower quadrant pain
CPT/HCPCS: 76700; 76856

== ENCOUNTER → 2020-12-16 | Outpatient (CLI) | payer BC, OTHER ==
--- NOTE | 2020-12-16 16:15 | NM ---
Nuclear medicine hepatobiliary scan. HISTORY: Pain. DOSAGE: The patient received 8 ounces of ensure plus and 4.6 mCi of Technetium 99m Choletec. FINDINGS: There is normal hepatic extraction. The gallbladder is seen by 10 minutes. There is bilia ry to bowel clearance by 30 minutes. Ejection fraction is 22%. IMPRESSION: 1. Abnormal ejection fraction of 22% correlate for biliary dyskinesia.
== END ==
LOC: RADNMMAIN 12:18
PROVIDERS: ATTEND Family Medicine
DX: R10.9 Unspecified abdominal pain (principal)
CPT/HCPCS: 78226; A9537

== ENCOUNTER 2021-01-05 06:30 | Day surgery (SDC) | payer BC, OTHER ==
[2021-01-01 10:33] VITALS: BMI 34.0
[~2021-01-05 06:30] MED LIST changes: +ACETAMINOPHEN TAB 500 MG TAB PO PRN; -DEXAMETHASONE SOD PHOSPHATE 10 MG/ML 1 ML VIAL IV ONE; +DEXAMETHASONE SOD PHOSPHATE 4 MG/ML 1 ML VIAL IV ONE; -HEPARIN SODIUM,PORCINE 5,000 UNIT/ML 1 ML VIAL SQ ONE; +HEPARIN SODIUM,PORCINE 5,000 UNIT/ML 1 ML VIAL SQ PRN; -HYDROmorphone 0.5 MG/0.5 ML SYRINGE IVP PRN; -LIDOCAINE 1% 20 ML VIAL (10MG/ML) FOR IV START INTRADERMA PRN; -Pre Op ABX Message 1 EACH MISC MISCELLANE ONE; -SCOPOLAMINE 1.5MG/72HR PATCH TRANSDERM ONE
[2021-01-05 06:57] VITALS: TEMP 98
[2021-01-05] MEDS ORDERED: HYDROmorphone 0.5 MG/0.5 ML SYRINGE IVP PRN (07:00)
[2021-01-05 07:05] LABS: Glucose,Whole Blood 146 mg/dL (75-99)
[2021-01-05] MEDS ORDERED: LIDOCAINE 1% (10MG/ML) FOR IV START INTRADERMA ONE (07:08)
[2021-01-05] MEDS ORDERED: MIDAZOLAM 2 MG/2 ML VIAL ONE (07:45)
[2021-01-05] MEDS ORDERED: PROPOFOL 10 MG/ML 20 ML VIAL IV ONE (07:45)
[2021-01-05] MEDS ORDERED: SUCCINYLCHOLINE CHLORIDE 100 MG/5 ML SYR IV ONE (07:45)
[2021-01-05] MEDS ORDERED: NEOSTIGMINE 1 MG/ML 10 ML VIAL ONE (07:45)
[2021-01-05] MEDS ORDERED: GLYCOPYRROLATE 0.2 MG/ML 2 ML VIAL ONE (07:45)
[2021-01-05] MEDS ORDERED: fentaNYL (PF) 50 MCG/ML 2 ML AMP ONE (07:45)
[2021-01-05] MEDS ORDERED: KETOROLAC 15 MG/ML 1 ML VIAL ONE (07:45)
[2021-01-05] MEDS ORDERED: ROCURONIUM 10 MG/ML (5 ML VIAL) IV ONE (07:45)
[2021-01-05] MEDS ORDERED: LIDOCAINE 1% INJ 10MG/ML (20 ML MDV) ONE (07:45)
[2021-01-05] MEDS ORDERED: HYDROmorphone (PF) 1 MG/ML ONE (07:45)
[2021-01-05] MEDS ORDERED: BUPIVACAINE (PF) 0.25% 30 ML VIAL SQ ONE ×2 (08:08→08:09)
[2021-01-05] MEDS ORDERED: LACTATED RINGERS 1,000 ML IV ONE (08:25)
--- NOTE | 2021-01-05 08:32 | P.GSHP ---
History of Present Illness H&P Date: 01/05/21 Chief Complaint: Cholelithiasis This is a 42-year-old female second N quadrant pain. A recent ultrasound evidence of cholelithiasis Past Medical History Past Medical History: Diabetes Mellitus, Hyperlipidemia, Hypertension Additional Past Medical History / Comment(s): depression History of Any Multi-Drug Resistant Organisms: None Reported Past Surgical History: Breast Surgery, Section, Hysterectomy, Uterine Ablation Additional Past Surgical History / Comment(s): Novasure, Cervical biopsy - benign, Section X2, lt breast biopsy-benign Past Anesthesia/Blood Transfusion Reactions: No Reported Reaction Additional Past Anesthesia/Blood Transfusion Reaction / Comment(s): Fatigue lasting 3-4 days after anesthesia. Smoking Status: Never smoker - Past Family History Mother Family Medical History: Cancer Additional Family Medical History / Comment(s): Breast cancer. Medications and Allergies Home Medications Medication Instructions Recorded Confirmed Type Insulin Glargine [Lantus] 70 unit SQ HS 09/08/16 01/05/21 History lisinopriL [Prinivil] 20 mg PO QAM 09/08/16 01/05/21 History metFORMIN HCL 1,000 mg PO BID 09/08/16 01/05/21 History ALPRAZolam [Xanax] 0.5 mg PO HS PRN 01/01/21 01/05/21 History Atorvastatin [Lipitor] 40 mg PO HS 01/01/21 01/05/21 History Semaglutide [Rybelsus] 14 mg PO DAILY 01/01/21 01/05/21 History Allergies Allergy/AdvReac Type Severity Reaction Status Date / Time Penicillins Allergy Unknown Verified 01/01/21 10:19 Childhood Surgical - Exam Vital Signs Temp Pulse Resp BP Pulse Ox 98.0 F 100 16 144/75 97 01/05/21 06:56 01/05/21 06:56 01/05/21 06:56 01/05/21 06:56 01/05/21 06:56 - General well developed, well nourished, no distress - Eyes PERRL - ENT normal pinna - Neck no masses - Respiratory normal expansion - Cardiovascular Rhythm: regular - Abdomen Abdomen: soft, non tender Results - Labs Abnormal Lab Results - Last 24 Hours (Table) 01/05/21 Range/Units 07:01 POC Glucose (mg/dL) 146 H (75-99) mg/dL Assessment and Plan Assessment: Cholelithiasis. We'll perform laparoscopic cholecystectomy
--- NOTE | 2021-01-05 08:33 | P.OP ---
Date of Procedure: 01/05/21 Preoperative Diagnosis: Cholelithiasis Postoperative Diagnosis: Cholelithiasis Procedure(s) Performed: Laparoscopic cholecystectomy Anesthesia: LILLI Surgeon: Thomas Salinas Estimated Blood Loss (ml): 5 Pathology: other (Gallbladder) Condition: stable Disposition: PACU Description of Procedure: The patient was placed on the operating table. The patient received a general endotracheal tube anesthesia. The patients abdomen was prepped and draped in the usual sterile fashion. Through an infraumbilical stab incision, the fascia of the anterior abdominal wall was grasped with a pair of Kochers and then the Veress needle was placed in the peritoneal cavity. Position of the Veress needle was confirmed with positive drop test. The abdomen was then insufflated. After adequate insufflation, the 10 mm trocar was placed in the peritoneal cavity. Following this the laparoscope was placed in the peritoneal cavity. The patient was placed in the head-up, right side up position and then a 5 mm trocar was placed in the right lateral and right subcostal position under direct visualization. A 8 mm trocar was placed in the epigastric position. The gallbladder was grasped in the fundus and infundibulum. Traction on the gallbladder was placed in the lateral and the cephalad positions. The triangle of Calot was visualized.. The cystic duct was bluntly dissected until the union of the cystic duct and common bile duct was seen. A critical view of safety was achieved. The cystic duct was then divided and sealed with the Harmonic scissors. A PDS Endoloop was then placed throughout the cystic duct stump. The cystic artery divided and sealed with the Harmonic scissors. The gallbladder was then removed from the liver bed using Harmonic scissors. The gallbladder was then extracted through the epigastric port site. Operative field was checked for any bleeding spots and Harmonic scissors was used to coagulate the liver bed. The abdomen was irrigated. The trocars were removed. The skin was closed using interrupted 3-0 Vicryl suture. Dermabond dressing were applied. The patient tolerated the procedure well.
[2021-01-05 08:52] LABS: Glucose,Whole Blood 168 mg/dL (75-99)
[2021-01-05 08:53] VITALS: RESP 16
[2021-01-05] MEDS ORDERED: FAMOTIDINE 20 MG/2 ML VIAL IVP ONE (09:15)
[2021-01-05] MEDS ORDERED: ACETAMINOPHEN TAB 325 MG TAB ONE (09:47)
[2021-01-05] MEDS ORDERED: ACETAMINOPHEN TAB 325 MG TAB PO ONE (09:48)
[2021-01-05 10:19] VITALS: BP 126/81; PULSE 90
== END 2021-01-05 10:45 | disposition home or self-care (01) ==
LOC: OR 06:30
PROVIDERS: ATTEND Surgery
DX: K80.10 Calculus of gallbladder with chronic cholecystitis without obstruction (principal); E11.9 Type 2 diabetes mellitus without complications; E78.5 Hyperlipidemia, unspecified; I10 Essential (primary) hypertension; F32.9 Major depressive disorder, single episode, unspecified; Z98.890 Other specified postprocedural states; Z90.710 Acquired absence of both cervix and uterus; Z87.898 Personal history of other specified conditions; Z79.4 Long term (current) use of insulin; Z79.899 Other long term (current) drug therapy; Z88.0 Allergy status to penicillin; Z80.3 Family history of malignant neoplasm of breast
CPT/HCPCS: 88304; 47562; J2250; J1644; J1100; J2710; J0690; J2405; J2001; J3010; J1170 ×2; J1885; J0330; J2704

== ENCOUNTER → 2021-01-27 | Outpatient (CLI) | payer BC, OTHER ==
--- NOTE | 2021-01-27 09:29 | MM ---
Reason for exam: follow-up at short interval from prior study. Last mammogram was performed 6 months ago. History: Patient is postmenopausal. Family history of breast cancer in mother at age 32 and breast cancer in grandmother. Benign MG pre op needle loc LT of the left breast, October 23, 2019. Benign US biopsy breast VAD LT of the left breast, July 25, 2019. Took hormonal contraceptives for 6 years. Physical Findings: Nurse did not find any significant physical abnormalities on exam. MG 3D Diag Mammo W/Cad LT CC, MLO, and XCCL view(s) were taken of the left breast. Prior study comparison: July 28, 2020, bilateral MG 3d diag mammo w/cad EH. April 30, 2020, left breast MG 3d diag mammo w/cad LT. There are scattered fibroglandular densities. Post surgical change left breast. No significant new findings when compared with previous films. These results were verbally communicated with the patient and result sheet given to the patient on 01/27/21. ASSESSMENT: Benign, BI-RAD 2 RECOMMENDATION: Routine screening mammogram of both breasts in 6 months. Back on schedule.
== END | disposition home or self-care (01) ==
LOC: RADMAMWWP 07:31
PROVIDERS: ATTEND Surgery
DX: R92.8 Other abnormal and inconclusive findings on diagnostic imaging of breast (principal)
CPT/HCPCS: 77061; 77065

== ENCOUNTER → 2021-01-30 | Outpatient (CLI) | payer BC, OTHER ==
[2021-01-30 15:50] VITALS: BP 134/73; PULSE 78; RESP 18; TEMP 98.4
--- NOTE | 2021-01-30 16:15 | P.PN ---
Subjective Progress Note Date: 01/30/21 Principal diagnosis: fibrocystic breast disease abnormal left breast mammogram Fibrocystic breast disease Comfort is a 45-year-old white female who had a routine mammogram performed on . There was noted to be a 6 mm equal density circumscribed lobulated mass 8 cm from the nipple in the upper outer quadrant mid position of the left breast. No lesions of concern were described in the right breast. An ultrasound of the left breast revealed a 0.7 x 0.9 cm irregular shadowing lesion for which biopsy was recommended. Several smaller cystic lesions were identified as well. The patient does not feel anything of concern in her breast. She underwent an ultrasound core biopsy on 07-25-10, this was felt to be discordant. She underwent a needle localization and open biopsy on 10-23-19 this was also benign. Repeat radiographic studies were left breast mammogram performed on 04/30/20 after which an ultrasound was performed on the same day. The findings were 1.7 cm hypoechoic lymph node in the axilla fell to be benign no cystic or solid lesions in the breast of concern. The finding was a benign BIRADS 2 and follow- up diagnostic mammogram of the left breast in 3 months recommended. The patient does not feel anything for which she is concerned. There is no ni pple discharge no skin changes no history of any recent trauma or infection in her breast. On the patient underwent a bilateral mammogram. Bilateral mammogram was felt to be probably benign BIRADS 3 and follow-up left breast mammogram in 6 months was recommended. A subtle low density, nodularity in the subareolar left breast was noted and this is what was being followed. The patient herself did not feel any lumps masses or nodules in either breast for which she was concerned. No complaints of nipple discharge or breast pain. She had not had any recent breast trauma or infection. Patient has redundant right axillary tissue which is asymmetric to the other side and tender at times. It rubs on her close making it difficult for her to have a close fit well. The patient had a repeat left breast mammogram done on 01-27-21. This was benign BIRAD. She is not complaining of any lumps masses or nodules in either breast. She is not complaining of breast pain or nipple discharge or tenderness. The patient had genetic testing done and is negative for the BRCA1 gene. This was secondary to her mother dying of breast cancer at the age of 40. Family History: mother: of breast cancer at 40, DX. at 32 paternal grandmother: breast cancer Hormonal history: Menarche:14 , breast fed: yes, age at first: 26 Hysterectomy at 40, left ovaries, done for endometriosis BCP: 2 years did not take anything with estrogen hormones:none Past Surgical History: 1. hysterectomy 2. cervical biopsy 3. novasure 4. teeth wisdom 5. gallbladder removed Medical History: 1. diabetic 2. HTN 3. depression Social History: smoke: none alcohol: none drugs: none - Constitutional Constitutional: Denies chills, Denies fever - EENT Eyes: denies blurred vision, denies pain Ears: bilateral: tinnitus, deny: decreased hearing Ears, nose, mouth and throat: Denies headache, Denies sore throat - Breasts Breasts: bilateral: as per HPI - Cardiovascular Cardiovascular: Reports high blood pressure - Respiratory Respiratory: Denies cough - Gastrointestinal Gastrointestinal: Denies abdominal pain, Denies diarrhea, Denies nausea, Denies vomiting - Genitourinary (Female) Genitourinary: Denies dysuria, Denies hematuria - Menstruation Menstruation: Reports post hysterectomy - Musculoskeletal Musculoskeletal: Reports myalgias - Integumentary Integumentary: Denies pruritus, Denies rash - Neurological Neurological: Denies numbness, Denies weakness - Psychiatric Psychiatric: Reports anxiety, Reports depression - Endocrine Comment: diabetes - Hematologic/Lymphatic Comment: none Objective - Vital Signs Vital signs: Vital Signs Temp 98.4 F 01/30/21 15:47 Pulse 78 01/30/21 15:47 Resp 18 01/30/21 15:47 BP 134/73 01/30/21 15:47 Pulse Ox 100 01/30/21 15:47 Intake & Output 01/29/21 01/30/21 01/30/21 18:59 06:59 18:59 Weight 102.965 kg - Constitutional General appearance: Present: average body habitus - EENT Eyes: Present: EOMI - Neck Neck: Present: normal ROM - Respiratory Respiratory: bilateral: CTA - Cardiovascular Rhythm: regular Heart sounds: normal: S1, S2 - Integumentary Integumentary: Present: normal turgor - Musculoskeletal Musculoskeletal: Present: gait normal - Psychiatric Psychiatric: Present: A&O x's 3, appropriate affect, intact judgment & insight - Additional findings Additional findings: Breast examination: Block: 44 DD Inspection: Bilateral grade 3 ptosis Palpation: Right breast: Multiple positional exam fibrocystic changes, prominent axillary breast tissue No dominant masses or nodules of concern Right axilla: No adenopathy of concern Left breast: Multi-positional exam fibrocystic changes no dominant masses or nodules of concern not as much prominent axillary tissue Left axilla: No adenopathy of concern Assessment and Plan Assessment: Impression: DM HTN depression Fibrocystic breast changes Strong family history of breast cancer/mother of breast cancer in her 40s Plan: 1. Repeat bilateral mammogram July 2021 with physician exam at that time 2. Patient is going to consider removal of the redundant axillary tissue at this time she wants to wait secondary to the COVID situation Cc: Dr. Miguel A Araiza
== END ==
LOC: WWCWWP 15:35
PROVIDERS: ATTEND Surgery
DX: N60.11 Diffuse cystic mastopathy of right breast (principal); N60.12 Diffuse cystic mastopathy of left breast; E11.9 Type 2 diabetes mellitus without complications; F32.9 Major depressive disorder, single episode, unspecified; I10 Essential (primary) hypertension; Z80.3 Family history of malignant neoplasm of breast

== ENCOUNTER → 2021-07-31 | Outpatient (CLI) | payer BC, OTHER ==
--- NOTE | 2021-08-03 11:53 | MM ---
Reason for exam: screening (asymptomatic). Last mammogram was performed 6 months ago. History: Patient is postmenopausal. Family history of breast cancer in mother at age 32 and breast cancer in grandmother. Benign MG pre op needle loc LT of the left breast, October 23, 2019. Benign US biopsy breast VAD LT of the left breast, July 25, 2019. Took hormonal contraceptives for 6 years. Physical Findings: A clinical breast exam by your physician is recommended on an annual basis and results should be correlated with mammographic findings. MG 3D Screening Mammo W/Cad Bilateral CC and MLO view(s) were taken. Prior study comparison: January 27, 2021, left breast MG 3d diag mammo w/cad LT. July 28, 2020, bilateral MG 3d diag mammo w/cad EH. There are scattered fibroglandular densities. Stable benign calcifications. There is no discrete abnormality. No significant changes when compared with prior studies. ASSESSMENT: Benign, BI-RAD 2 RECOMMENDATION: Routine screening mammogram of both breasts in 1 year.
== END | disposition home or self-care (01) ==
LOC: RADMAMWWP 09:33
PROVIDERS: ATTEND Surgery
DX: Z12.31 Encounter for screening mammogram for malignant neoplasm of breast (principal); Z80.3 Family history of malignant neoplasm of breast
CPT/HCPCS: 77063; 77067

== ENCOUNTER → 2021-08-13 | Outpatient (CLI) | payer BC, OTHER ==
[2021-08-13 14:28] VITALS: BP 141/96; PULSE 86; RESP 18; TEMP 98.7
--- NOTE | 2021-08-13 14:42 | P.PN ---
Subjective Progress Note Date: 08/13/21 Principal diagnosis: Fibrocystic breast changes fibrocystic breast disease abnormal left breast mammogram Fibrocystic breast disease Comfort is a 45-year-old white female who had a routine mammogram performed on . There was noted to be a 6 mm equal density circumscribed lobulated mass 8 cm from the nipple in the upper outer quadrant mid position of the left breast. No lesions of concern were described in the right breast. An ultrasound of the left breast revealed a 0.7 x 0.9 cm irregular shadowing lesion for which biopsy was recommended. Several smaller cystic lesions were identified as well. The patient does not feel anything of concern in her breast. She underwent an ultrasound core biopsy on 07-25-10, this was felt to be discordant. She underwent a needle localization and open biopsy on 10-23-19 this was also benign. Repeat radiographic studies were left breast mammogram performed on 04/30/20 after which an ultrasound was performed on the same day. The findings were 1.7 cm hypoechoic lymph node in the axilla fell to be benign no cystic or solid lesions in the breast of concern. The finding was a benign BIRADS 2 and follow- up diagnostic mammogram of the left breast in 3 months recommended. The patient does not feel anything for which she is concerned. There is no nipple discharge no skin changes no history of any recent trauma or infection in her breast. On the patient underwent a bilateral mammogram. Bilateral mammogram was felt to be probably benign BIRADS 3 and follow-up left breast mammogram in 6 months was recommended. A subtle low density, nodularity in the subareolar left breast was noted and this is what was being followed. The patient herself did not feel any lumps masses or nodules in either breast for which she was concerned. No complaints of nipple discharge or breast pain. She had not had any recent breast trauma or infection. Patient has redundant right axillary tissue which is asymmetric to the other side and tender at times. It rubs on her close making it difficult for her to have a close fit well. The patient had a repeat left breast mammogram done on 01-27-21. This was benign BIRAD 2. She is not complaining of any lumps masses or nodules in either breast. She is not complaining of breast pain or nipple discharge or tenderness. The patient had genetic testing done and is negative for the BRCA1 gene. This was secondary to her mother dying of breast cancer at the age of 40. The patient had a bilateral mammogram on 07-31-21 which was benign BIRAD 2. She is not complaining of any lumps masses or nodules in either breast. She is not complaining of any nipple discharge or skin changes. Family History: mother: of breast cancer at 40, DX. at 32 paternal grandmother: breast cancer Hormonal history: Menarche:14 , breast fed: yes, age at first: 26 Hysterectomy at 40, left ovaries, done for endometriosis BCP: 2 years did not take anything with estrogen hormones:none Past Surgical History: 1. hysterectomy 2. cervical biopsy 3. novasure 4. teeth wisdom 5. gallbladder removed Medical History: 1. diabetic 2. HTN 3. depression Social History: smoke: none alcohol: none drugs: none - Constitutional Constitutional: Denies chills, Denies fever - EENT Eyes: denies blurred vision, denies pain Ears: bilateral: tinnitus, deny: decreased hearing Ears, nose, mouth and throat: Denies headache, Denies sore throat - Breasts Breasts: bilateral: as per HPI - Cardiovascular Cardiovascular: Reports high blood pressure - Respiratory Respiratory: Denies cough - Gastrointestinal Gastrointestinal: Denies abdominal pain, Denies diarrhea, Denies nausea, Denies vomiting - Genitourinary (Female) Genitourinary: Denies dysuria, Denies hematuria - Menstruation Menstruation: Reports post hysterectomy - Musculoskeletal Musculoskeletal: Reports myalgias - Integumentary Integumentary: Denies pruritus, Denies rash - Neurological Neurological: Denies numbness, Denies weakness - Psychiatric Psychiatric: Reports anxiety, Reports depression - Endocrine Comment: diabetes - Hematologic/Lymphatic Comment: none Objective - Vital Signs Vital signs: Vital Signs Temp 98.7 F 08/13/21 14:25 Pulse 86 08/13/21 14:25 Resp 18 08/13/21 14:25 BP 141/96 08/13/21 14:25 Pulse Ox 98 08/13/21 14:25 Intake & Output 08/12/21 08/13/21 08/13/21 18:59 06:59 18:59 Weight 92.986 kg - Exam BMI 30.3 - Constitutional General appearance: Present: cooperative - EENT Eyes: Present: EOMI ENT: Present: hearing grossly normal - Respiratory Respiratory: bilateral: CTA - Cardiovascular Heart sounds: normal: S1, S2 - Integumentary Integumentary: Present: normal turgor - Musculoskeletal Musculoskeletal: Present: gait normal - Psychiatric Psychiatric: Present: A&O x's 3, appropriate affect, intact judgment & insight - Additional findings Additional findings: Breast Exam: BRA: 44DD Inspection: Redundant right axillary tissue, grade 3 ptosis bilateral Palpation: Right breast: Multiple positional exam fibrocystic changes no dominant masses or nodules of concern Right axilla: Redundant right axillary tissue Left breast: Multi-positional exam fibrocystic changes no dominant masses or nodules of concern Left axilla: No adenopathy of concern Assessment and Plan Assessment: Impression: 1. Bilateral fibrocystic breast changes Plan: 1. Repeat bilateral mammogram in 1 year with physician exam at that time 2. Patient to follow up sooner if any questions or concerns CC: Dr. Miguel A Araiza
== END ==
LOC: WWCWWP 14:01
PROVIDERS: ATTEND Surgery
DX: N60.11 Diffuse cystic mastopathy of right breast (principal); N60.12 Diffuse cystic mastopathy of left breast; E11.9 Type 2 diabetes mellitus without complications; R92.8 Other abnormal and inconclusive findings on diagnostic imaging of breast; I10 Essential (primary) hypertension; F32.9 Major depressive disorder, single episode, unspecified; Z80.3 Family history of malignant neoplasm of breast; Z88.0 Allergy status to penicillin

== ENCOUNTER → 2021-09-05 | Outpatient (CLI) | payer BC, OTHER ==
--- NOTE | 2021-09-05 09:14 | MR ---
MRI CERVICAL SPINE: CLINICAL HISTORY: Headache with Neck pain causing bilateral upper extremity weakness and numbness, re cent injury August 01. TECHNIQUE: Multiplanar, multisequence imaging of the cervical spine is performed without IV contrast. COMPARISON: None. FINDINGS: Sagittal images of the cervical spine show the craniocervical junction to appear within nor mal limits. 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 Vertebral alignment is satisfactory. The vertebral body and intravertebral disk heights are normal. Mild to moderate multilevel anterior spurring The bone marrow signal intensity is within normal limit s. 2 adjacent inferior tiny mucous retention cysts and/or polyps right maxillary sinus sagittal image 15. Axial images at C2-C3 level show left paracentral disc protrusion mildly facing anterior thecal sac. Axial images at C3-C4 level shows broad-based left paracentral spur disc complex effacing anterior th ecal sac, there is uncovertebral facet degenerative changes bilaterally causing severe left and moder ate right-sided neural foraminal narrowing. Axial images at the C4-C5 level shows broad-based left paracentral spur disc complex and uncovertebra l facet spurring, there is effacement of the anterior thecal sac and moderate right along with severe left-sided neural foraminal narrowing. Axial images at the C5-C6 level shows broad-based left paracentral disc protrusion effacing anterior thecal sac and causing moderate to advanced bilateral neural foraminal narrowing. Axial images at C6-C7 level show most prominent broad-based left paracentral disc protrusion effaces the anterior thecal sac causing flattening of the spinal cord with slight increased signal, there is moderate to advanced bilateral neural foraminal narrowing. Axial images at the C7-T1 level appear within normal limits. IMPRESSION: Multilevel degenerative changes in the cervical spine as detailed above. Findings are patrick ewhat prominent for patient's chronologic age, attention to the C6-C7 level where most severe finding s are noted causing mass effect and some mild cord edema. Findings may account for patient's clinical symptoms. Advise neurosurgical referral. A Yellow level critical message alert has been initiated for Miguel A Araiza MD via the [email or web address] Critical Results System on 09/05/2021 9:11 AM. This message alert has been sent to Miguel A Araiza MD via the preferences provided by the clinician for the receipt of Radiology Critical Findings. [facility] ID [id number].
== END | disposition home or self-care (01) ==
LOC: RADMRIMAIN 08:10
PROVIDERS: ATTEND Family Medicine
DX: M50.323 Other cervical disc degeneration at C6-C7 level (principal); M54.12 Radiculopathy, cervical region
CPT/HCPCS: 72141

== ENCOUNTER 2022-02-04 10:26 | Emergency (ER) | payer BC, OTHER ==
[2022-02-04 10:31] VITALS: BP 122/77; PULSE 82; RESP 18; TEMP 98
[2022-02-04] MEDS ORDERED: HYDROmorphone 0.5 MG/0.5 ML SYRINGE IVP STA (11:01)
[2022-02-04] MEDS ORDERED: ONDANSETRON 4 MG/2 ML VIAL IVP STA (11:01)
[2022-02-04] MEDS ORDERED: SODIUM CHLORIDE 0.9% 1,000 ML IV STA ×2 (11:01→12:16)
--- NOTE | 2022-02-04 11:40 | ED ---
Abdominal Pain HPI - General Chief Complaint: Abdominal Pain Stated Complaint: Rt Sided Abd Pain Time Seen by Provider: 02/04/22 10:41 Source: patient, RN notes reviewed Mode of arrival: ambulatory Limitations: no limitations - History of Present Illness Initial Comments: This is a 46-year-old female who presents the emergency department for right flank pain and right lower abdominal pain. Yesterday she had a right flank pain that was mild to moderate. When she woke up this morning, she states that the pain was severe and began to wraparound to her right lower quadrant. States that this is some of the worst pain she has ever had, denies any history of kidney stones. She does feel nauseous, but denies any vomiting, dysuria, hematuria. She's been treating her symptoms with Tylenol, which she states does offer some improvement. MD Complaint: abdominal pain, flank pain Associated Symptoms: nausea - Related Data Home Medications Medication Instructions Recorded Confirmed lisinopriL [Prinivil] 20 mg PO DAILY 09/08/16 02/04/22 metFORMIN HCL [Glucophage] 1,000 mg PO BID 09/08/16 02/04/22 ALPRAZolam [Xanax] 0.5 mg PO HS 01/01/21 02/04/22 Atorvastatin [Lipitor] 40 mg PO HS 01/01/21 02/04/22 Semaglutide [Rybelsus] 14 mg PO DAILY 01/01/21 02/04/22 Insulin Detemir (Levemir) [Levemir] 50 unit SQ HS 08/13/21 02/04/22 Repaglinide [Prandin] 0.5 mg PO HS 02/04/22 02/04/22 Previous Rx's Medication Instructions Recorded Ondansetron Odt [Zofran Odt] 4 mg PO Q8HR PRN #30 tab 02/04/22 Tamsulosin [Flomax] 0.4 mg PO DAILY #30 cap 02/04/22 Allergies Allergy/AdvReac Type Severity Reaction Status Date / Time Penicillins Allergy Unknown Verified 02/04/22 11:19 Childhood Review of Systems ROS Statement: Those systems with pertinent positive or pertinent negative responses have been documented in the HPI. ROS Other: All systems not noted in ROS Statement are negative. Constitutional: Denies: fever, chills ENT: Denies: ear pain, throat pain Respiratory: Denies: cough, dyspnea Cardiovascular: Denies: chest pain, palpitations Gastrointestinal: Reports: abdominal pain, nausea. Denies: vomiting, diarrhea Genitourinary: Denies: urgency, dysuria Musculoskeletal: Reports: back pain Skin: Denies: rash Neurological: Denies: headache Past Medical History Past Medical History: Diabetes Mellitus, Hyperlipidemia, Hypertension Additional Past Medical History / Comment(s): depression History of Any Multi-Drug Resistant Organisms: None Reported Past Surgical History: Breast Surgery, Section, Hysterectomy, Uterine Ablation Additional Past Surgical History / Comment(s): Novasure, Cervical biopsy - benign, Section X2, lt breast biopsy-benign Past Anesthesia/Blood Transfusion Reactions: No Reported Reaction Additional Past Anesthesia/Blood Transfusion Reaction / Comment(s): Fatigue lasting 3-4 days after anesthesia. Past Psychological History: Anxiety, Depression Smoking Status: Never smoker Past Alcohol Use History: None Reported Past Drug Use History: None Reported - Past Family History Mother Family Medical History: Cancer Additional Family Medical History / Comment(s): Breast cancer. General Exam Limitations: no limitations General appearance: alert, in distress Head exam: Present: atraumatic, normocephalic, normal inspection Respiratory exam: Present: normal lung sounds bilaterally. Absent: respiratory distress, wheezes, rales, rhonchi, stridor Cardiovascular Exam: Present: regular rate, normal rhythm, normal heart sounds. Absent: systolic murmur, diastolic murmur, rubs, gallop, clicks GI/Abdominal exam: Present: soft, normal bowel sounds. Absent: distended, tenderness, guarding, rebound, rigid Back exam: Present: CVA tenderness (R). Absent: CVA tenderness (L) Neurological exam: Present: alert, oriented X3, CN II-XII intact Psychiatric exam: Present: normal affect, normal mood Skin exam: Present: warm, dry, intact, normal color. Absent: rash Course Vital Signs 02/04/22 10:29 Temperature 98 F Pulse Rate 82 Respiratory 18 Rate Blood Pressure 122/77 O2 Sat by Pulse 100 Oximetry Medical Decision Making - Medical Decision Making This is a 46-year-old female who presents to the emergency department for right flank and RLQ pain. Lab work reveals an elevated lactic acid of 2.2. This is consistent with dehydration and not an infectious process. The patient was noted to have a lot of blood and moderate bacteria in the urine. She was given a dose of 1 g of ceftriaxone in the emergency department. Computed tomography scan of the abdomen and pelvis obtained, this revealed a 3-4 mm partially obstructive distal right ureter calculus. Patient was rehydrated with 2 L of normal saline. Pain was controlled with Dilaudid in the emergency department and she feels comfortable going home. Patient discharged on a course of Flomax and given Zofran for nausea. She does have [place] at home, which I instructed her to take when the pain becomes severe, and she can otherwise treat her symptoms with Tylenol. Urine strainer provided to help the patient know when she passes the stone. Return precautions reviewed in depth, the patient is instructed to return to the emergency department with any new, worsening, or concerning symptoms. Patient verbalized understanding. This case was discussed in detail with the attending ED physician. Presentation, findings, and treatment plan discussed in detail as well. - Lab Data Result diagrams: 02/04/22 11:29 02/04/22 11:29 Lab Results 02/04/22 02/04/22 02/04/22 Range/Units 11:29 11:29 11:29 WBC 11.4 H (3.8-10.6) k/uL RBC 4.68 (3.80-5.40) m/uL Hgb 13.7 (11.4-16.0) gm/dL Hct 41.0 (34.0-46.0) % MCV 87.7 (80.0-100.0) fL MCH 29.3 (25.0-35.0) pg MCHC 33.4 (31.0-37.0) g/dL RDW 13.8 (11.5-15.5) % Plt Count 357 (150-450) k/uL MPV 7.0 Neutrophils % 57 % Lymphocytes % 34 % Monocytes % 5 % Eosinophils % 2 % Basophils % 0 % Neutrophils # 6.5 (1.3-7.7) k/uL Lymphocytes # 3.8 (1.0-4.8) k/uL Monocytes # 0.5 (0-1.0) k/uL Eosinophils # 0.3 (0-0.7) k/uL Basophils # 0.0 (0-0.2) k/uL Sodium 139 (137-145) mmol/L Potassium 4.0 (3.5-5.1) mmol/L Chloride 104 (98-107) mmol/L Carbon Dioxide 26 (22-30) mmol/L Anion Gap 9 mmol/L BUN 9 (7-17) mg/dL Creatinine 0.54 (0.52-1.04) mg/dL Est GFR (CKD-EPI)AfAm >90 (>60 ml/min/1.73 sqM) Est GFR (CKD-EPI)NonAf >90 (>60 ml/min/1.73 sqM) Glucose 92 (74-99) mg/dL Lactic Ac Sepsis Rflx Plasma Lactic Acid Juan Manuel (0.7-2.0) mmol/L Calcium 9.7 (8.4-10.2) mg/dL Total Bilirubin 0.8 (0.2-1.3) mg/dL AST 25 (14-36) U/L ALT 22 (4-34) U/L Alkaline Phosphatase 61 (38-126) U/L Troponin I (0.000-0.034) ng/mL Total Protein 7.7 (6.3-8.2) g/dL Albumin 4.5 (3.5-5.0) g/dL Amylase 58 (30-110) U/L Lipase 123 (23-300) U/L Urine Color Dark Yellow Urine Appearance Turbid H (Clear) Urine pH 5.5 (5.0-8.0) Ur Specific Johnston 1.029 (1.001-1.035) Urine Protein 1+ H (Negative) Urine Glucose (UA) Negative (Negative) Urine Ketones Negative (Negative) Urine Blood Large H (Negative) Urine Nitrite Negative (Negative) Urine Bilirubin Negative (Negative) Urine Urobilinogen <2.0 (<2.0) mg/dL Ur Leukocyte Esterase Negative (Negative) Urine RBC >182 H (0-5) /hpf Urine WBC 9 H (0-5) /hpf Ur Squamous Epith Cells 41 H (0-4) /hpf Urine Bacteria Moderate H (None) /hpf Urine Mucus Many H (None) /hpf 02/04/22 02/04/22 02/04/22 Range/Units 11:29 11:29 12:04 WBC (3.8-10.6) k/uL RBC (3.80-5.40) m/uL Hgb (11.4-16.0) gm/dL Hct (34.0-46.0) % MCV (80.0-100.0) fL MCH (25.0-35.0) pg MCHC (31.0-37.0) g/dL RDW (11.5-15.5) % Plt Count (150-450) k/uL MPV Neutrophils % % Lymphocytes % % Monocytes % % Eosinophils % % Basophils % % Neutrophils # (1.3-7.7) k/uL Lymphocytes # (1.0-4.8) k/uL Monocytes # (0-1.0) k/uL Eosinophils # (0-0.7) k/uL Basophils # (0-0.2) k/uL Sodium (137-145) mmol/L Potassium (3.5-5.1) mmol/L Chloride (98-107) mmol/L Carbon Dioxide (22-30) mmol/L Anion Gap mmol/L BUN (7-17) mg/dL Creatinine (0.52-1.04) mg/dL Est GFR (CKD-EPI)AfAm (>60 ml/min/1.73 sqM) Est GFR (CKD-EPI)NonAf (>60 ml/min/1.73 sqM) Glucose (74-99) mg/dL Lactic Ac Sepsis Rflx Y Plasma Lactic Acid Juan Manuel 2.2 H* (0.7-2.0) mmol/L Calcium (8.4-10.2) mg/dL Total Bilirubin (0.2-1.3) mg/dL AST (14-36) U/L ALT (4-34) U/L Alkaline Phosphatase (38-126) U/L Troponin I <0.012 (0.000-0.034) ng/mL Total Protein (6.3-8.2) g/dL Albumin (3.5-5.0) g/dL Amylase (30-110) U/L Lipase (23-300) U/L Urine Color Urine Appearance (Clear) Urine pH (5.0-8.0) Ur Specific Johnston (1.001-1.035) Urine Protein (Negative) Urine Glucose (UA) (Negative) Urine Ketones (Negative) Urine Blood (Negative) Urine Nitrite (Negative) Urine Bilirubin (Negative) Urine Urobilinogen (<2.0) mg/dL Ur Leukocyte Esterase (Negative) Urine RBC (0-5) /hpf Urine WBC (0-5) /hpf Ur Squamous Epith Cells (0-4) /hpf Urine Bacteria (None) /hpf Urine Mucus (None) /hpf - EKG Data EKG shows normal: sinus rhythm EKG Comments: Normal sinus rhythm. Moderate intraventricular conduction delay. Ventricular rate 78 bpm, AK interval 149 ms, QRS duration 124 ms, - Radiology Data Radiology results: report reviewed, image reviewed Disposition Clinical Impression: Ureteral calculus, right Disposition: HOME SELF-CARE Instructions (If sedation given, give patient instructions): Kidney Stones (ED), Renal Colic (ED), How to Strain Your Urine (ED) Additional Instructions: Return to the emergency department with any new, worsening, or concerning symptoms. Take the Flomax after the same meal each day until you pass the kidney stone. Use the urine strainer as you are able to in order to know when you pass it. Use the Zofran up to 3 times daily as needed for nausea and vomiting. You may use the [place] you have at home as needed for pain. Follow-up with your primary care provider in 1 to 2 days. Prescriptions: Tamsulosin [Flomax] 0.4 mg PO DAILY #30 cap Ondansetron Odt [Zofran Odt] 4 mg PO Q8HR PRN #30 tab PRN Reason: Nausea And Vomiting Is patient prescribed a controlled substance at d/c from ED?: No Referrals: Miguel A Araiza MD [Primary Care Provider] - 1-2 days
[2022-02-04 11:44] LABS: Basophils % (A) 0 %; Eosinophils # (A) 0.3 k/uL (0-0.7); Eosinophils % (A) 2 %; HGB 13.7 gm/dL (11.4-16.0); Lymphocytes # (A) 3.8 k/uL (1.0-4.8); Lymphocytes % (A) 34 %; MCH 29.3 pg (25.0-35.0); MCHC 33.4 g/dL (31.0-37.0); MCV 87.7 fL (80.0-100.0); Monocytes # (A) 0.5 k/uL (0-1.0); Monocytes % (A) 5 %; Neutrophils # (A) 6.5 k/uL (1.3-7.7); Neutrophils % (A) 57 %; Platelet Count 357 k/uL (150-450); RBC 4.68 m/uL (3.80-5.40); RDW 13.8 % (11.5-15.5); WBC 11.4 k/uL (3.8-10.6)
[2022-02-04 11:57] LABS: ALT 22 U/L (4-34); AST 25 U/L (14-36); African American GFR (CKD) >90 (>60 ml/min/1.73 sqM); Albumin 4.5 g/dL (3.5-5.0); Alkaline Phosphatase 61 U/L (38-126); Amylase 58 U/L (30-110); Anion Gap 9 mmol/L; Blood Urea Nitrogen 9 mg/dL (7-17); Calcium 9.7 mg/dL (8.4-10.2); Carbon Dioxide 26 mmol/L (22-30); Chloride 104 mmol/L (98-107); Glucose 92 mg/dL (74-99); Lipase 123 U/L (23-300); Non-African American GFR(CKD) >90 (>60 ml/min/1.73 sqM); Sodium 139 mmol/L (137-145); Total Bilirubin 0.8 mg/dL (0.2-1.3); Total Protein 7.7 g/dL (6.3-8.2)
[2022-02-04 12:11] LABS: Appearance,Urine Turbid (Clear); Bacteria,Urine Moderate /hpf; Bilirubin,Urine Negative (Negative); Blood,Urine Large (Negative); Color,Urine Dark Yellow; Glucose,Urine (UA) Negative (Negative); Ketones,Urine Negative (Negative); Leukocyte Esterase,Urine Negative (Negative); Mucus,Urine Many /hpf; Nitrite,Urine Negative (Negative); PH, Urine 5.5 (5.0-8.0); Protein,Urine 1+ (Negative); RBC,Urine >182 /hpf (0-5); Specific Gravity,Urine 1.029 (1.001-1.035); Squamous Epithelial Cell,Urine 41 /hpf (0-4); Urobilinogen,Urine <2.0 mg/dL (<2.0); WBC,Urine 9 /hpf (0-5)
--- NOTE | 2022-02-04 13:04 | CT ---
EXAMINATION TYPE: CT abdomen pelvis w con DATE OF EXAM: 02/04/2022 COMPARISON: HISTORY: acute abdominal pain CT DLP: 1614.2 mGycm Automated exposure control for dose reduction was used. TECHNIQUE: Helical acquisition of images from the lung bases through the pelvis have been completed. CONTRAST: Performed without Oral Contrast and with IV Contrast, patient injected with 100ml mL of Isovue 300. FINDINGS: LUNG BASES: No significant abnormality is appreciated. AORTA: No significant abnormality is appreciated. LIVER/GB: Patient is post cholecystectomy. Liver shows no mass.. PANCREAS: No significant abnormality is seen. SPLEEN: No significant abnormality is seen. ADRENALS: No significant abnormality is seen. KIDNEYS: Small cortical cyst seen at the midpole the left kidney. At the level of the distal right ur eter there is a small calculus present measuring possibly 3 to 4 mm there is slightly asymmetric excr etion is noted decreased on the right, there is right-sided hydroureter REPRODUCTIVE ORGANS: No significant abnormality is seen BOWEL: Small bowel folds show some wall thickening. The appendix is not seen with certainty FREE AIR: No Free Air visible. ASCITES: None visible. PELVIC ADENOPATHY: None visualized. RETROPERITONEAL ADENOPATHY: No Retroperitoneal Adenopathy visible. URINARY BLADDER: No significant abnormality is seen. OSSEOUS STRUCTURES: degenerative disc changes are present in the visualized spine. Bilateral spondyl olysis present at L5, there is loss of disc height with vacuum phenomenon at L5-S1, associated spondy losis, foraminal encroachment bilaterally. IMPRESSION: AT LEAST PARTIALLY OBSTRUCTIVE DISTAL RIGHT URETERAL CALCULUS additional findings above.
== END 2022-02-04 17:01 | disposition home or self-care (01) ==
LOC: EC 10:26
DX: N20.1 Calculus of ureter (principal); I10 Essential (primary) hypertension; E11.9 Type 2 diabetes mellitus without complications; Z88.0 Allergy status to penicillin
CPT/HCPCS: 36415; 93005; 80053; 82150; 83605; 83690; 84484; 85025; 81001; 87040; 74177; 99284; 96365; 96375; 96361; J2405; J0696; J1170; Q9967

== ENCOUNTER → 2022-08-05 | Outpatient (CLI) | payer BC, OTHER ==
--- NOTE | 2022-08-06 10:11 | MM ---
Reason for Exam: Screening (asymptomatic). Last screening mammogram was performed 12 month(s) ago. Patient History: Menarche at age 14. First Full-Term at age 26. Hysterectomy at age 40. Postmenopausal. Patient used Hormonal Contraceptives for 6 years. 10/23/2019, Benign Core Biopsy on the left side. 07/25/2019, Benign Core Biopsy on the left side. Maternal grandmother had breast cancer. Mother had breast cancer, age 32. Risk Values: Ashley 5 year model risk: 3.9%. NCI Lifetime model risk: 26.9%. Prior Study Comparison: 07/28/2020 Bilateral Diagnostic Mammogram, [facility]. 01/27/2021 Left Diagnostic Mammogram, [facility]. 07/31/2021 Bilateral Screening Mammogram, [facility]. Tissue Density: The breast tissue is almost entirely fat. Findings: Analyzed By CAD. There is no suspicious group of microcalcifications or new suspicious mass in either breast. Clips are seen in the left breast. Overall Assessment: Negative, BI-RAD 1 Management: Screening Mammogram of both breasts in 1 year. A clinical breast exam by your physician is recommended on an annual basis and results should be correlated with mammographic findings. [facility] will attempt to contact patient to return for supplemental views and ultrasound if indicated. Electronically signed and approved by: Yung Osei DO
== END | disposition home or self-care (01) ==
LOC: RADMAMWWP 14:43
PROVIDERS: ATTEND Surgery
DX: Z12.31 Encounter for screening mammogram for malignant neoplasm of breast (principal); Z78.0 Asymptomatic menopausal state; Z80.3 Family history of malignant neoplasm of breast
CPT/HCPCS: 77063; 77067

== ENCOUNTER → 2022-08-13 | Outpatient (CLI) | payer BC, OTHER ==
[2022-08-13 15:04] VITALS: BP 117/67; PULSE 67; RESP 17; TEMP 97.8
--- NOTE | 2022-08-13 15:10 | P.PN ---
Subjective Progress Note Date: 08/13/22 Principal diagnosis: fibrocystic breast changes fibrocystic breast disease abnormal left breast mammogram Fibrocystic breast disease Comfort is a 46-year-old white female who had a routine mammogram performed on . There was noted to be a 6 mm equal density circumscribed lobulated mass 8 cm from the nipple in the upper outer quadrant mid position of the left breast. No lesions of concern were described in the right breast. An ultrasound of the left breast revealed a 0.7 x 0.9 cm irregular shadowing lesion for which biopsy was recommended. Several smaller cystic lesions were identified as well. The patient does not feel anything of concern in her breast. She underwent an ultrasound core biopsy on 07-25-10, this was felt to be discordant. She underwent a needle localization and open biopsy on 10-23-19 this was also benign. Repeat radiographic studies were left breast mammogram performed on 04/30/20 after which an ultrasound was performed on the same day. The findings were 1.7 cm hypoechoic lymph node in the axilla fell to be benign no cystic or solid lesions in the breast of concern. The finding was a benign BIRADS 2 and follow- up diagnostic mammogram of the left breast in 3 months recommended. The patient does not feel anything for which she is concerned. There is no nipple discharge no skin changes no history of any recent trauma or infection in her breast. On the patient underwent a bilateral mammogram. Bilateral mammogram was felt to be probably benign BIRADS 3 and follow-up left breast mammogram in 6 months was recommended. A subtle low density, nodularity in the subareolar left breast was noted and this is what was being followed. The patient herself did not feel any lumps masses or nodules in either breast for which she was concerned. No complaints of nipple discharge or breast pain. She had not had any recent breast trauma or infection. Patient has redundant right axillary tissue which is asymmetric to the other side and tender at times. It rubs on her close making it difficult for her to have a close fit well. The patient had a repeat left breast mammogram done on 01-27-21. This was benign BIRAD 2. She is not complaining of any lumps masses or nodules in either breast. She is not complaining of breast pain or nipple discharge or tenderness. The patient had genetic testing done and is negative for the BRCA1 gene. This was secondary to her mother dying of breast cancer at the age of 40. 08-13-22 08-05-22 bilateral mammogram BIRAD 1. Is not complaining of any new lumps masses or nodules of concern in either breast. She is not complaining of any nipple discharge or skin changes. . Family History: mother: of breast cancer at 40, DX. at 32 paternal grandmother: breast cancer Hormonal history: Menarche:14 , breast fed: yes, age at first: 26 Hysterectomy at 40, left ovaries, done for endometriosis BCP: 2 years did not take anything with estrogen hormones:none Past Surgical History: 1. hysterectomy 2. cervical biopsy 3. novasure 4. teeth wisdom 5. gallbladder removed 6. Anterior discectomy and spinal fusion in December 2021 Medical History: 1. diabetic 2. HTN 3. depression 4. kidney stone 5. early stages glaucoma Social History: smoke: none alcohol: none drugs: none - Constitutional Constitutional: Denies chills, Denies fever - EENT Eyes: denies blurred vision, denies pain Ears: bilateral: tinnitus, deny: decreased hearing Ears, nose, mouth and throat: Denies headache, Denies sore throat - Breasts Breasts: bilateral: as per HPI - Cardiovascular Cardiovascular: Reports high blood pressure - Respiratory Respiratory: Denies cough - Gastrointestinal Gastrointestinal: Denies abdominal pain, Denies diarrhea, Denies nausea, Denies vomiting - Genitourinary (Female) Genitourinary: Denies dysuria, Denies hematuria - Menstruation Menstruation: Reports post hysterectomy - Musculoskeletal Musculoskeletal: Reports myalgias - Integumentary Integumentary: Denies pruritus, Denies rash - Neurological Neurological: Denies numbness, Denies weakness - Psychiatric Psychiatric: Reports anxiety, Reports depression - Endocrine Comment: diabetes - Hematologic/Lymphatic Comment: none Objective - Constitutional General appearance: Present: cooperative - EENT Eyes: Present: EOMI ENT: Present: hearing grossly normal - Neck Neck: Present: normal ROM - Respiratory Respiratory: bilateral: CTA - Cardiovascular Rhythm: regular Heart sounds: normal: S1, S2 - Gastrointestinal General gastrointestinal: Present: soft - Integumentary Integumentary: Present: normal turgor - Musculoskeletal Musculoskeletal: Present: gait normal - Psychiatric Psychiatric: Present: A&O x's 3, appropriate affect, intact judgment & insight - Additional findings Additional findings: Breast Exam: BRA: 44DD inspection: Redundant right axillary breast tissue, bilateral grade 3 ptosis Palpation: Right breast: Multiple position with exam fibrocystic changes no dominant masses or nodules of concern With axilla: No adenopathy of concern Left breast: Multi-positional exam fibrocystic changes no dominant masses or nodules of concern Left axilla: No adenopathy of concern Assessment and Plan Assessment: Impression: Strong family history of breast cancer Ashley five-year model risk 3.9%; patient is aware and has declined hormone reduction therapy patient is recommended to have repeat genetic testing and wishes to have this done In: Bilateral mammogram in 1 year Patient is going to have genetic testing done she's going to set this up Patient to follow up in 1 year for physical exam Cc: Dr. Miguel A Araiza, Dr. Mendez
== END | disposition home or self-care (01) ==
LOC: WWCWWP 14:39
PROVIDERS: ATTEND Surgery
DX: Z53.9 Procedure and treatment not carried out, unspecified reason (principal)

== ENCOUNTER 2023-02-05 13:44 | Emergency (ER) | payer BC, OTHER ==
[2023-02-05 13:53] VITALS: RESP 18; TEMP 97.9
--- NOTE | 2023-02-05 13:58 | ED ---
General Adult HPI - General Chief complaint: Syncope Stated complaint: syncope Time Seen by Provider: 02/05/23 13:46 Source: patient, EMS, RN notes reviewed Mode of arrival: EMS Limitations: no limitations - History of Present Illness Initial comments: Patient is a pleasant 47-year-old female presenting to the emergency department following syncopal episode. Patient states she did have some mild abdominal cramping and felt she needed to use the restroom. Prior to this patient did pass out. Patient did fall down and strike her head. No headache. Patient has mild neck discomfort however does have chronic neck pain. Patient did chip 2 teeth. No chest pain or dyspnea at a time. Abdominal cramping has resolved. - Related Data Home Medications Medication Instructions Recorded Confirmed lisinopriL [Prinivil] 20 mg PO DAILY 09/08/16 08/13/22 metFORMIN HCL [Glucophage] 1,000 mg PO BID 09/08/16 08/13/22 ALPRAZolam [Xanax] 0.5 mg PO HS 01/01/21 08/13/22 Atorvastatin [Lipitor] 40 mg PO HS 01/01/21 08/13/22 Semaglutide [Rybelsus] 14 mg PO DAILY 01/01/21 08/13/22 Insulin Detemir (Levemir) [Levemir] 50 unit SQ HS 08/13/21 08/13/22 Repaglinide [Prandin] 0.5 mg PO HS 02/04/22 08/13/22 Sertraline HCl [Zoloft] 50 mg PO DAILY 08/13/22 08/13/22 Previous Rx's Medication Instructions Recorded Ondansetron Odt [Zofran Odt] 4 mg PO Q8HR PRN #30 tab 02/04/22 Tamsulosin [Flomax] 0.4 mg PO DAILY #30 cap 02/04/22 Allergies Allergy/AdvReac Type Severity Reaction Status Date / Time Penicillins Allergy Unknown Verified 08/13/22 15:00 Childhood Review of Systems ROS Statement: Those systems with pertinent positive or pertinent negative responses have been documented in the HPI. ROS Other: All systems not noted in ROS Statement are negative. Constitutional: Denies: fever Eyes: Denies: eye pain ENT: Denies: ear pain Respiratory: Denies: cough, dyspnea Cardiovascular: Denies: chest pain Endocrine: Denies: fatigue Gastrointestinal: Reports: as per HPI Musculoskeletal: Denies: back pain Skin: Denies: rash Neurological: Denies: headache Past Medical History Past Medical History: Diabetes Mellitus, Hyperlipidemia, Hypertension Additional Past Medical History / Comment(s): depression History of Any Multi-Drug Resistant Organisms: None Reported Past Surgical History: Breast Surgery, Section, Hysterectomy, Uterine Ablation Additional Past Surgical History / Comment(s): Novasure, Cervical biopsy - benign, Section X2, lt breast biopsy-benign Past Anesthesia/Blood Transfusion Reactions: No Reported Reaction Additional Past Anesthesia/Blood Transfusion Reaction / Comment(s): Fatigue lasting 3-4 days after anesthesia. Past Psychological History: Anxiety, Depression Smoking Status: Never smoker Past Alcohol Use History: None Reported Past Drug Use History: None Reported - Past Family History Mother Family Medical History: Cancer Additional Family Medical History / Comment(s): Breast cancer. General Exam Limitations: no limitations General appearance: alert, in no apparent distress Head exam: Present: normocephalic Eye exam: Present: normal appearance, PERRL, EOMI ENT exam: Present: other (Patient does have small chip fractures to the upper right lateral incisor and upper left central incisor) Neck exam: Present: normal inspection, tenderness (Minimal tenderness mid to lower cervical spine). Absent: meningismus Cardiovascular Exam: Present: regular rate, normal rhythm GI/Abdominal exam: Present: soft, normal bowel sounds. Absent: distended, tenderness, guarding, rebound, rigid, pulsatile mass Extremities exam: Present: normal inspection. Absent: pedal edema, calf tenderness Neurological exam: Present: alert, oriented X3, CN II-XII intact. Absent: motor sensory deficit Expanded Neurological exam: Present: protecting the airway Patient oriented to: Present: person, place, time Speech: Present: fluid speech Cranial nerves: EOM's Intact: Normal Motor strength exam: RUE: 5, LUE: 5, RLE: 5, LLE: 5 Eye Response: (4) open spontaneously Motor Response: (6) obeys commands Verbal Response: (5) oriented Psychiatric exam: Present: normal affect, normal mood Skin exam: Present: normal color Course Vital Signs 02/05/23 13:47 Temperature 97.9 F Pulse Rate 76 Respiratory 18 Rate Blood Pressure 118/88 O2 Sat by Pulse 99 Oximetry EKG Findings - EKG Results: EKG: interpreted by ERMD (Right axis. Nonspecific intraventricular conduction delay.), sinus rhythm, normal ST/T EKG shows: bradycardia Medical Decision Making - Medical Decision Making Was pt. sent in by a medical professional or institution (, [facility], JOINT SUPERVISOR, urgent care, hospital, or care home...) When possible be specific @ -No Did you speak to anyone other than the patient for history (EMS, parent, family, police, friend...)? What history was obtained from this source @ -No Did you review nursing and triage notes (agree or disagree)? Why? @ -I reviewed and agree with nursing and triage notes Were old charts reviewed (outside hosp., previous admission, EMS record, old EKG, old radiological studies, urgent care reports/EKG's, care home records)? Report findings @ -No old charts were reviewed Differential Diagnosis (chest pain, altered mental status, abdominal pain women, abdominal pain men, vaginal bleeding, weakness, fever, dyspnea, syncope, headache, dizziness, GI bleed, back pain, seizure, CVA, palpatations, mental health)? @ -Differential Syncope: Valvular disease, hypertrophic cardiomyopathy, pulmonary embolism, tamponade, tachycardia, bradycardia, CA, hypovolemia, hemorrhage, dissection, anemia, intracranial hemorrhage, seizure, hypoglycemia, carbon monoxide poisoning, this is not meant to be an all-inclusive list. EKG interpreted by me (3pts min.). @ -As above X-rays interpreted by me (1pt min.). @ -Chest x-ray shows no acute process CT interpreted by me (1pt min.). @ -Report reviewed U/S interpreted by me (1pt. min.). @ -None done What testing was considered but not performed or refused? (CT, X-rays, U/S, labs)? Why? @ -None What meds were considered but not given or refused? Why? @ -None Did you discuss the management of the patient with other professionals (professionals i.e. SUKI Colón, JOINT SUPERVISOR, lab, RT, psych nurse, social insurance specialist, lawyer real estate, teacher, multisensor intelligence officer, hospice case manager)? Give summary @ -No Was smoking cessation discussed for >3mins.? @ -No Was critical care preformed (if so, how long)? @ -No Were there social determinants of health that impacted care today? How? (Homelessness, low income, unemployed, alcoholism, drug addiction, transportation, low edu. Level, literacy, decrease access to med. care, [facility], rehab)? @ -No Was there de-escalation of care discussed even if they declined (Discuss DNR or withdrawal of care, Hospice)? DNR status @ -No What co-morbidities impacted this encounter? (DM, HTN, Smoking, COPD, CAD, Cancer, CVA, ARF, Chemo, Hep., AIDS, mental health diagnosis, sleep apnea, morbid obesity)? @ -None Was patient admitted / discharged? Hospital course, mention meds given and route, prescriptions, significant lab abnormalities, going to OR and other pertinent info. @ -Patient reevaluated and remains symptom-free. Patient updated on results and need for follow-up Undiagnosed new problem with uncertain prognosis? @ -No Drug Therapy requiring intensive monitoring for toxicity (Heparin, Nitro, Insulin, Cardizem)? @ -No Were any procedures done? @ -No Diagnosis/symptom? @ -Syncope Acute, or Chronic, or Acute on Chronic? @ -Acute Uncomplicated (without systemic symptoms) or Complicated (systemic symptoms)? @ -default Side effects of treatment? @ -No Exacerbation, Progression, or Severe Exacerbation? @ -No Poses a threat to life or bodily function? How? (Chest pain, USA, CA, pneumonia, PE, COPD, DKA, ARF, appy, cholecystitis, CVA, Diverticulitis, Homicidal, Suicidal, threat to staff... and all critical care pts) @ -No - Lab Data Result diagrams: 02/05/23 14:05 02/05/23 14:05 Lab Results 02/05/23 02/05/23 02/05/23 Range/Units 14:05 14:05 14:05 WBC 9.4 (3.8-10.6) k/uL RBC 4.42 (3.80-5.40) m/uL Hgb 12.2 (11.4-16.0) gm/dL Hct 36.9 (34.0-46.0) % MCV 83.5 (80.0-100.0) fL MCH 27.7 (25.0-35.0) pg MCHC 33.2 (31.0-37.0) g/dL RDW 13.7 (11.5-15.5) % Plt Count 296 (150-450) k/uL MPV 7.0 Neutrophils % 67 % Lymphocytes % 25 % Monocytes % 5 % Eosinophils % 1 % Basophils % 0 % Neutrophils # 6.3 (1.3-7.7) k/uL Lymphocytes # 2.4 (1.0-4.8) k/uL Monocytes # 0.5 (0-1.0) k/uL Eosinophils # 0.1 (0-0.7) k/uL Basophils # 0.0 (0-0.2) k/uL PT 10.6 (9.0-12.0) sec INR 1.0 (<1.2) APTT 21.0 L (22.0-30.0) sec Sodium 141 (137-145) mmol/L Potassium 3.6 (3.5-5.1) mmol/L Chloride 107 (98-107) mmol/L Carbon Dioxide 23 (22-30) mmol/L Anion Gap 11 mmol/L BUN 11 (7-17) mg/dL Creatinine 0.51 L (0.52-1.04) mg/dL Est GFR (CKD-EPI)AfAm >90 (>60 ml/min/1.73 sqM) Est GFR (CKD-EPI)NonAf >90 (>60 ml/min/1.73 sqM) Glucose 104 H (74-99) mg/dL Calcium 8.9 (8.4-10.2) mg/dL Magnesium 1.8 (1.6-2.3) mg/dL Total Bilirubin 0.8 (0.2-1.3) mg/dL AST 29 (14-36) U/L ALT 31 (4-34) U/L Alkaline Phosphatase 57 (38-126) U/L Troponin I (0.000-0.034) ng/mL Total Protein 6.8 (6.3-8.2) g/dL Albumin 3.9 (3.5-5.0) g/dL 02/05/23 Range/Units 14:05 WBC (3.8-10.6) k/uL RBC (3.80-5.40) m/uL Hgb (11.4-16.0) gm/dL Hct (34.0-46.0) % MCV (80.0-100.0) fL MCH (25.0-35.0) pg MCHC (31.0-37.0) g/dL RDW (11.5-15.5) % Plt Count (150-450) k/uL MPV Neutrophils % % Lymphocytes % % Monocytes % % Eosinophils % % Basophils % % Neutrophils # (1.3-7.7) k/uL Lymphocytes # (1.0-4.8) k/uL Monocytes # (0-1.0) k/uL Eosinophils # (0-0.7) k/uL Basophils # (0-0.2) k/uL PT (9.0-12.0) sec INR (<1.2) APTT (22.0-30.0) sec Sodium (137-145) mmol/L Potassium (3.5-5.1) mmol/L Chloride (98-107) mmol/L Carbon Dioxide (22-30) mmol/L Anion Gap mmol/L BUN (7-17) mg/dL Creatinine (0.52-1.04) mg/dL Est GFR (CKD-EPI)AfAm (>60 ml/min/1.73 sqM) Est GFR (CKD-EPI)NonAf (>60 ml/min/1.73 sqM) Glucose (74-99) mg/dL Calcium (8.4-10.2) mg/dL Magnesium (1.6-2.3) mg/dL Total Bilirubin (0.2-1.3) mg/dL AST (14-36) U/L ALT (4-34) U/L Alkaline Phosphatase (38-126) U/L Troponin I <0.012 (0.000-0.034) ng/mL Total Protein (6.3-8.2) g/dL Albumin (3.5-5.0) g/dL Disposition Clinical Impression: Syncope Disposition: HOME SELF-CARE Condition: Stable Instructions (If sedation given, give patient instructions): Syncope (ED) Additional Instructions: Please do follow-up to primary care physician in the next couple days for recheck. Return for repetitive passing out, chest pain or shortness of breath, abdominal pain, worsening or changing symptoms or other concerns. Is patient prescribed a controlled substance at d/c from ED?: No Referrals: Miguel A Araiza MD [Primary Care Provider] - 1-2 days Time of Disposition: 16:37
[2023-02-05 14:21] LABS: Basophils % (A) 0 %; Eosinophils # (A) 0.1 k/uL (0-0.7); Eosinophils % (A) 1 %; HCT 36.9 % (34.0-46.0); HGB 12.2 gm/dL (11.4-16.0); Lymphocytes # (A) 2.4 k/uL (1.0-4.8); Lymphocytes % (A) 25 %; MCH 27.7 pg (25.0-35.0); MCHC 33.2 g/dL (31.0-37.0); MCV 83.5 fL (80.0-100.0); Monocytes # (A) 0.5 k/uL (0-1.0); Monocytes % (A) 5 %; Neutrophils # (A) 6.3 k/uL (1.3-7.7); Neutrophils % (A) 67 %; Platelet Count 296 k/uL (150-450); RBC 4.42 m/uL (3.80-5.40); RDW 13.7 % (11.5-15.5); WBC 9.4 k/uL (3.8-10.6)
[2023-02-05 14:32] LABS: ALT 31 U/L (4-34); AST 29 U/L (14-36); African American GFR (CKD) >90 (>60 ml/min/1.73 sqM); Albumin 3.9 g/dL (3.5-5.0); Alkaline Phosphatase 57 U/L (38-126); Anion Gap 11 mmol/L; Blood Urea Nitrogen 11 mg/dL (7-17); Calcium 8.9 mg/dL (8.4-10.2); Carbon Dioxide 23 mmol/L (22-30); Chloride 107 mmol/L (98-107); Glucose 104 mg/dL (74-99); Magnesium 1.8 mg/dL (1.6-2.3); Non-African American GFR(CKD) >90 (>60 ml/min/1.73 sqM); Potassium 3.6 mmol/L (3.5-5.1); Sodium 141 mmol/L (137-145); Total Bilirubin 0.8 mg/dL (0.2-1.3); Total Protein 6.8 g/dL (6.3-8.2)
[2023-02-05 14:40] LABS: Prothrombin Time 10.6 sec (9.0-12.0)
--- NOTE | 2023-02-05 15:37 | CT ---
EXAMINATION TYPE: CT brain cspine wo con CT DLP: 1615.4 mGycm, Automated exposure control for dose reduction was used. DATE OF EXAM: 02/05/2023 3:02 PM COMPARISON: 11/09/2013 CLINICAL INDICATION:Female, 47 years old with history of syncope; TECHNIQUE: Brain: Multiple axial CT images of the brain were obtained without IV contrast. Cspine: Axial CT images from the skull base to the inferior aspect of T2 we obtained without intraven ous contrast. Coronal and sagittal reformatted images were also reviewed. FINDINGS: Brain: Extra-axial spaces: No abnormal extra-axial fluid collections. Ventricular system: Within normal limits Cerebral parenchyma: No acute intraparenchymal hemorrhage or mass effect. The aguirre-white junction is well differentiated. Cerebellum: Unremarkable. Mass effect: No evidence of midline shift. Intracranial vasculature: Atherosclerotic calcifications of the intracranial vessels. Soft tissues: Normal. Calvarium/osseous structures: No depressed skull fracture. Paranasal sinuses and mastoid air cells: Clear. Visualized orbits: Orbital contents are intact. Cervical spine: Fracture: None. Osseous structures: Fixation hardware at C5, C6, C7 hardware is intact. Multilevel degenerative disc disease changes with endplate spurring and disc osteophyte complex's. Vertebral alignment: Within normal limits. Spinal canal/Neural Foramina: No evidence of significant spinal canal narrowing. No evidence for sign ificant neural foraminal stenosis. Neck soft tissues: Prevertebral soft tissues are within normal limits. Other: The airway is patent. The lung apices are clear. IMPRESSION: 1. No acute intracranial process. 2. No evidence of cervical spine fracture. 3. Mild multilevel degenerative disc disease. 4. Post fixation changes with hardware intact at C5-C7.
--- NOTE | 2023-02-05 15:40 | CT ---
EXAMINATION TYPE: CT abdomen pelvis w con CT DLP: 1771 mGycm, Automated exposure control for dose reduction was used. DATE OF EXAM: 02/05/2023 3:03 PM COMPARISON: CT abdomen pelvis most recent from 01/27/2022 CLINICAL INDICATION:Female, 47 years old with history of abp, syncope; syncope and abdominal pain TECHNIQUE: Axial CT of the abdomen and pelvis. Sagittal and coronal reformats were created on a [employer] workstation. Contrast used:100 mL of Isovue 300 with IV Contrast, Oral contrast used: without Oral Contrast FINDINGS: LOWER CHEST: Unremarkable ABDOMEN LIVER: Unremarkable GALLBLADDER AND BILE DUCTS: The gallbladder is surgically absent. PANCREAS: Unremarkable. SPLEEN: Unremarkable. ADRENAL GLANDS: Unremarkable. KIDNEYS AND URETERS: No evidence of hydronephrosis or renal calculus. The ureters are unremarkable. PELVIS BLADDER: Unremarkable REPRODUCTIVE: Left ovarian cyst measuring up to 4.2 cm. ABDOMEN & PELVIS STOMACH AND BOWEL: No evidence of bowel obstruction. Large stool burden throughout the descending col on and extending into the rectum with large rectal fecal, measuring up to 8.5 cm. PERITONEUM/RETROPERITONEUM: No evidence of pneumoperitoneum or free fluid. VASCULATURE: No evidence of aortic aneurysm. MUSCULOSKELETAL: No acute osseous abnormalities LYMPH NODES: No gross evidence for lymphadenopathy. SOFT TISSUE/ABDOMINAL WALL: Unremarkable IMPRESSION: 1. Large stool burden throughout the distal colon with fecaloma measuring up to 8.5 cm in transverse dimension. No additional acute intra-abdominal process to explain the patient's pain. 2. Left ovarian 4.2 cm cyst.
--- NOTE | 2023-02-05 16:29 | XR ---
EXAMINATION TYPE: XR chest 2V DATE OF EXAM: 02/05/2023 3:54 PM COMPARISON: Chest radiographs from TECHNIQUE: XR chest 2V Frontal and lateral views of the chest. CLINICAL INDICATION:Female, 47 years old with history of syncope; FINDINGS: Lungs/Pleura: There is no evidence of pleural effusion, focal consolidation, or pneumothorax. Pulmonary vascularity: Unremarkable. Heart/mediastinum: Cardiomediastinal silhouette is unremarkable. Musculoskeletal: No acute osseous pathology. IMPRESSION: No acute cardiopulmonary disease/process.
[2023-02-05 16:44] VITALS: BP 120/76; PULSE 87
== END 2023-02-05 16:44 | disposition home or self-care (01) ==
LOC: EC 13:44
DX: R55 Syncope and collapse (principal); I10 Essential (primary) hypertension; E11.9 Type 2 diabetes mellitus without complications; E78.5 Hyperlipidemia, unspecified; F32.A Depression, unspecified; F41.9 Anxiety disorder, unspecified; Z79.84 Long term (current) use of oral hypoglycemic drugs; Z79.4 Long term (current) use of insulin; Z79.899 Other long term (current) drug therapy; Z88.0 Allergy status to penicillin
CPT/HCPCS: 36415; 70450; 71046; 72125; 74177; 80053; 83735; 84484; 85025; 85610; 85730; 93005; 99284

== ENCOUNTER → 2023-02-08 | Outpatient (CLI) | payer BC, OTHER ==
--- NOTE | 2023-02-08 14:37 | CT ---
EXAMINATION TYPE: CT abdomen pelvis wo con DATE OF EXAM: 02/08/2023 COMPARISON: 02/05/2023 HISTORY: 47-year-old female S05.10XD, N83.[address] DLP: 533.6 mGycm. Automated exposure control for dose reduction was used. TECHNIQUE: Contiguous axial scanning of the abdomen and pelvis without IV contrast. Coronal and sagit katharina reconstructions performed. FINDINGS: Heart normal size without pericardial effusion. Lung bases clear without pleural effusion. Noncontrast appearance of the liver, adrenal glands, kidneys, spleen, and pancreas within normal limi ts. Cholecystectomy clips. No dilated small bowel, free fluid, or free air. No mesenteric or retroperitoneal lymphadenopathy. Appendix not seen. No secondary signs of acute appendicitis in the right lower quadrant. Some scattered prominent fluid-filled small bowel loops throughout the abdomen. No transition point t o suggest obstruction or abnormal small bowel dilatation. No significant stool burden. No pericolonic inflammatory change. No mesenteric or retroperitoneal lymphadenopathy. Bladder nondistended. Uterus is absent. There is a 4.4 cm cystic lesion of the left ovary measuring 4 .7 cm on 02/05/2023. Right ovary is visualized. No abnormal fluid collection in the pelvis or pelvic l ymphadenopathy seen. Bones: Moderate to advanced degenerative disc disease L5-S1. Discussed by complex tear causes mild to moderate narrowing of the spinal canal. Facet arthropathy lower lumbar spine. Mild degenerative epperson ge of both hips. IMPRESSION: 1. Prominent fluid-filled small bowel loops throughout the abdomen may be transient. Correlate for p ossible mild enteritis. 2. 4.4 cm cystic lesion of the left ovary (versus 4.7 cm on 02/05/2023). A dominant follicle or func tional cyst of the left ovary is favored. Recommend follow-up pelvic ultrasound in 6-8 weeks to ensur e involution. 3. Interval clearance of the previous large stool burden.
--- NOTE | 2023-02-08 14:41 | CT ---
EXAMINATION TYPE: CT orbits wo con DATE OF EXAM: 02/08/2023 COMPARISON: CT brain from 02/05/2023 HISTORY: 47-year-old female S05.10XD, N83.209, bruising and contusion around right eye TECHNIQUE: Contiguous axial scanning of the orbits without IV contrast. Coronal and sagittal reconstr uctions performed. CT DLP: 397.3 mGycm Automated exposure control for dose reduction was used. FINDINGS: There is no abnormality of visualized intracranial structures. There is no evidence of fractures. Optic canals appear normal. Optic nerves are symmetrical bilaterally. There is no intraocular abnorm ality. Extraocular muscles are symmetrical bilaterally. There is no retrobulbar orbital mass. No pres eptal or postseptal abnormality seen. Mucosal retention cyst floor of the right maxillary sinus measuring up to 1.6 x 0.6 cm. Leftward nasa l septal deviation. A 4 mm focus of cerumen in the left external auditory canal. IMPRESSION: 1. NO PRESEPTAL OR POSTSEPTAL ABNORMALITY IDENTIFIED AT EITHER ORBIT. GLOBES APPEAR SYMMETRIC. 2. LEFTWARD NASAL SEPTAL DEVIATION. MILD CHRONIC RIGHT MAXILLARY SINUS DISEASE.
== END | disposition home or self-care (01) ==
LOC: RADCTMAIN 12:06
PROVIDERS: ATTEND Family Medicine
DX: S05.10XD Contusion of eyeball and orbital tissues, unspecified eye, subsequent encounter (principal); N83.202 Unspecified ovarian cyst, left side; J34.2 Deviated nasal septum; J32.0 Chronic maxillary sinusitis
CPT/HCPCS: 70480; 74176

== ENCOUNTER → 2023-08-08 | Outpatient (CLI) | payer BC, OTHER ==
--- NOTE | 2023-08-09 10:01 | MM ---
Reason for Exam: Screening (asymptomatic). Last screening mammogram was performed 12 month(s) ago. Patient History: Menarche at age 14. First Full-Term at age 26. Hysterectomy at age 40. Postmenopausal. Patient used Hormonal Contraceptives for 6 years. 10/23/2019, Benign Core Biopsy on the left side. 07/25/2019, Benign Core Biopsy on the left side. Maternal grandmother had breast cancer. Mother had breast cancer, age 32. Risk Values: Ashley 5 year model risk: 4.2%. NCI Lifetime model risk: 26.5%. Prior Study Comparison: 01/27/2021 Left Diagnostic Mammogram, [facility]. 07/31/2021 Bilateral Screening Mammogram, [facility]. 08/05/2022 Bilateral MG 3D screening mammo w/cad, [facility]. Tissue Density: There are scattered fibroglandular densities. Findings: Analyzed By CAD. Pattern appears symmetrical and stable. Stable surgical clips are within the left anterior breast. No significant interval change is evident. No suspicious groups of microcalcifications, spiculated or lobular masses, architectural distortion or other secondary signs of malignancy are mammographically apparent. Overall Assessment: Benign, BI-RAD 2 Management: Screening Mammogram of both breasts in 1 year. A negative mammogram report should not preclude additional follow up of suspicious palpable abnormalities. Patient should continue monthly self breast exam. A clinical breast exam by your physician is recommended on an annual basis and results should be correlated with mammographic findings. Electronically signed and approved by: Elier Hall D.O. Radiologis
== END | disposition home or self-care (01) ==
LOC: RADMAMWWP 07:45
PROVIDERS: ATTEND Surgery
DX: Z12.31 Encounter for screening mammogram for malignant neoplasm of breast (principal); Z78.0 Asymptomatic menopausal state; Z80.3 Family history of malignant neoplasm of breast
CPT/HCPCS: 77063; 77067

== ENCOUNTER → 2023-08-19 | Outpatient (CLI) | payer BC, OTHER ==
--- NOTE | 2023-08-19 12:01 | P.PN ---
Subjective Progress Note Date: 08/19/23 Principal diagnosis: high risk breast cancer fibrocystic breast disease Fibrocystic breast disease Comfort is a 46-year-old white female who had a routine mammogram performed on . There was noted to be a 6 mm equal density circumscribed lobulated mass 8 cm from the nipple in the upper outer quadrant mid position of the left breast. No lesions of concern were described in the right breast. An ultrasound of the left breast revealed a 0.7 x 0.9 cm irregular shadowing lesion for which biopsy was recommended. Several smaller cystic lesions were identified as well. The patient does not feel anything of concern in her breast. She underwent an ultrasound core biopsy on 07-25-10, this was felt to be discordant. She underwent a needle localization and open biopsy on 10-23-19 this was also benign. Repeat radiographic studies were left breast mammogram performed on 04/30/20 after which an ultrasound was performed on the same day. The findings were 1.7 cm hypoechoic lymph node in the axilla fell to be benign no cystic or solid lesions in the breast of concern. The finding was a benign BIRADS 2 and follow- up diagnostic mammogram of the left breast in 3 months recommended. The patient does not feel anything for which she is concerned. There is no nipple discharge no skin changes no history of any recent trauma or infection in her breast. On the patient underwent a bilateral mammogram. Bilateral mammogram was felt to be probably benign BIRADS 3 and follow-up left breast mammogram in 6 months was recommended. A subtle low density, nodularity in the subareolar left breast was noted and this is what was being followed. The patient herself did not feel any lumps masses or nodules in either breast for which she was concerned. No complaints of nipple discharge or breast pain. She had not had any recent breast trauma or infection. Patient has redundant right axillary tissue which is asymmetric to the other side and tender at times. It rubs on her clothes making it difficult for her to have a clothes fit well. The patient had a repeat left breast mammogram done on 01-27-21. This was benign BIRAD 2. She is not complaining of any lumps masses or nodules in either breast. She is not complaining of breast pain or nipple discharge or tenderness. The patient had genetic testing done and is negative for the BRCA1 gene. This was secondary to her mother dying of breast cancer at the age of 40. 08-13-22 08-05-22 bilateral mammogram BIRAD 1. Is not complaining of any new lumps masses or nodules of concern in either breast. She is not complaining of any nipple discharge or skin changes. 08-19-23 bilateral mammogram 08-08-23 BIRAD 2 Ashley Risk: 5 year 4.2% lifetime risk: 26.5% She is not complaining of a new lumps masses or nodules of concern in either breast We have discussed chemoprophylaxis and at this time the patient has declined. Patient has lost approximately 60 pounds over the last 2 years. Family History: mother: of breast cancer at 40, DX. at 32 paternal grandmother: breast cancer Hormonal history: Menarche:14 , breast fed: yes, age at first: 26 Hysterectomy at 40, left ovaries, done for endometriosis BCP: 2 years did not take anything with estrogen hormones:none Past Surgical History: 1. hysterectomy 2. cervical biopsy 3. novasure 4. teeth wisdom 5. gallbladder removed 6. Anterior discectomy and spinal fusion in December 2021 Medical History: 1. diabetic 2. HTN 3. depression 4. kidney stone 5. early stages glaucoma Social History: smoke: none alcohol: none drugs: none - Constitutional Constitutional: Denies chills, Denies fever - EENT Eyes: denies blurred vision, denies pain Ears: bilateral: tinnitus, deny: decreased hearing Ears, nose, mouth and throat: Denies headache, Denies sore throat - Breasts Breasts: bilateral: as per HPI - Cardiovascular Cardiovascular: Reports high blood pressure - Respiratory Respiratory: Denies cough - Gastrointestinal Gastrointestinal: Denies abdominal pain, Denies diarrhea, Denies nausea, Denies vomiting - Genitourinary (Female) Genitourinary: Denies dysuria, Denies hematuria - Menstruation Menstruation: Reports post hysterectomy - Musculoskeletal Musculoskeletal: Reports myalgias - Integumentary Integumentary: Denies pruritus, Denies rash - Neurological Neurological: Denies numbness, Denies weakness - Psychiatric Psychiatric: Reports anxiety, Reports depression - Endocrine Comment: diabetes - Hematologic/Lymphatic Comment: none Objective - Vital Signs Vital signs: Vital Signs Temp 98.4 F 08/19/23 11:44 Pulse 77 08/19/23 11:44 Resp 18 08/19/23 11:44 BP 116/78 08/19/23 11:44 Pulse Ox 97 08/19/23 11:44 FiO2 Intake & Output 08/18/23 08/19/23 08/19/23 18:59 06:59 18:59 Weight 87.543 kg - Constitutional General appearance: Present: cooperative - EENT Eyes: Present: EOMI ENT: Present: hearing grossly normal - Neck Neck: Present: normal ROM - Respiratory Respiratory: bilateral: CTA - Cardiovascular Heart sounds: normal: S1, S2 - Musculoskeletal Musculoskeletal: Present: gait normal - Psychiatric Psychiatric: Present: A&O x's 3, appropriate affect, intact judgment & insight - Additional findings Additional findings: Breast Exam: BRA: 42DD inspection: Redundant right axillary breast tissue, bilateral grade 3 ptosis Palpation: Right breast: Multi-positional exam fibrocystic changes no dominant masses or nodules of concern With axilla: No adenopathy of concern Left breast: Multi-positional exam fibrocystic changes no dominant masses or nodules of concern Left axilla: No adenopathy of concern Assessment and Plan Assessment: Impression: Strong family history of breast cancer Ashley five-year model risk 4.2%; patient is aware and has declined hormone reduction therapy; lifetime risk of breast cancer 26.5% bilateral mammogram 08-08-23 BIRAD 2 considered repeat genetic testing but this has not been done yet Impression: Bilateral mammogram in 1 year consider alternate MRI and mammogram every 6 months we are going to check insurance Patient to follow up in 1 year for physical exam; or in 6 months if an MRI is done Cc: Dr. Miguel A Araiza, Dr. Mendez
[2023-08-19 12:06] VITALS: BP 116/78; PULSE 77; RESP 18; TEMP 98.4
== END ==
LOC: WWCWWP 11:03
PROVIDERS: ATTEND Surgery
DX: Z12.31 Encounter for screening mammogram for malignant neoplasm of breast (principal); N60.11 Diffuse cystic mastopathy of right breast; I10 Essential (primary) hypertension; F32.A Depression, unspecified; N60.02 Solitary cyst of left breast; N63.42 Unspecified lump in left breast, subareolar; N63.21 Unspecified lump in the left breast, upper outer quadrant; E11.9 Type 2 diabetes mellitus without complications; Z87.442 Personal history of urinary calculi; Z80.3 Family history of malignant neoplasm of breast; Z88.0 Allergy status to penicillin; Z79.84 Long term (current) use of oral hypoglycemic drugs; Z79.899 Other long term (current) drug therapy; Z79.4 Long term (current) use of insulin